=== PATIENT | female | born 1940 | race Caucasian/White ===

== ENCOUNTER 2019-02-04 10:25 | Inpatient (IN) | payer MEDICARE, SELFPAY ==
[2019-02-04] VITALS (14 sets, daily range): BP systolic 141–184; BP diastolic 59–89; PULSE 90–116; RESP 18–22; TEMP 36.6–37.2; O2SAT 96–99; BMI 20.1; BMI 20.7
--- NOTE | 2019-02-04 10:34 | EKG12_ITS ---
Test Reason : SOB Blood Pressure : / mmHG Vent. Rate : 103 BPM Atrial Rate : 103 BPM P-R Int : 152 ms QRS Dur : 084 ms QT Int : 332 ms P-R-T Axes : 085 070 075 degrees QTc Int : 434 ms Sinus tachycardia Otherwise normal ECG Confirmed by LISA THOMPSON ([id number]), image editor TOMMIE POSADAS ([id number]) on 02/07/2019 1:49:47 PM Referred By: Denilson Schultz Confirmed By:LISA THOMPSON
--- NOTE | 2019-02-04 10:45 | RAD_ITS ---
STUDY: X-RAY CHEST REASON FOR EXAM: Female, 78 years old. TECHNIQUE: 1 view COMPARISON: August 14, 2014. FINDINGS: There is hyperinflation of the right lung which is clear. There is loss of volume of the left lung with elevation of the left hemidiaphragm. There is calcification of the aortic knob. The cardiac silhouette is not enlarged. There is oval opacity in the right hilum measures 3.3 x 2 cm this is a new finding since the previous examination for which CT scan is recommended. RAD/Chest 1 View (Portable) IMPRESSION: Loss of volume of the left lung with the 3.3 x 2 cm oval opacity in the left hilum that needs further assessment by CT scan. Electronically Signed: Delia Sandoval, at 11:06 EDT Tel , Service support ,
--- NOTE | 2019-02-04 10:49 | CT_ITS ---
STUDY: CTA CHEST REASON FOR EXAM: Female, 78 years old. RADIATION DOSAGE (If Supplied By Facility): CTDIvol = ( 4.08 ) mGy, DLP = ( 127.53 ) mGycm TECHNIQUE: The examination was performed with the intravenous administration of 75CC IV Isovue 370. Post-processing of the angiographic images was performed, with multiplanar reformation and 3D reconstruction. Individualized dose optimization techniques were used for this CT. COMPARISON: None. FINDINGS: There is atelectasis of the left upper lobe which is pulling the left hilum and left pulmonary artery causing oval opacity seen on x-ray. No obvious air bronchogram noted within the collapsed left upper lobe. The rest of the left lung is clear. The pulmonary trunk and both the pulmonary arteries including segmental and subsegmental branches are within normal limits no evidence of filling defect to suggest PE. The right lung is hyperinflated and clear. No retrosternal, paratracheal or hilar adenopathy seen CT/CTA Chest W/WO Contrast IMPRESSION: Collapse of the left upper lobe which pulling up he left hilum and left pulmonary artery that is causing the opacity seen on x-ray. No hilar mass identified. No PE seen. Electronically Signed: Delia Sandoval, at 12:23 EDT Tel , Service support ,
--- NOTE | 2019-02-04 10:50 | ED.DCSUM_ITS ---
History of Present Illness Chief Complaint: Shortness of Breath Informant: Patient, Family Onset: Days Current Severity: Mild Narrative: Patient has a history of severe COPD she is on chronic home O2 2 to 4 L family patient reports that for about a week or so she has had pain to her left mid posterior back worse when she takes a deep breath, frequent urination, and what seems like more shortness of breath than her baseline however she is chronically short of breath she uses a O2 all the time. She was seen in [facility] ED her work-up was unremarkable there was a concern she may have pneumonia she was started on azithromycin Z-Jerome which she completed however the pain has persisted despite her taking all the antibiotics and using her chronic oral opioid medications which she uses for chronic whole body pain and she is been on for years, she indicates she is having frequent urination and some dysuria she has a history of UTIs no history of kidney stones, no documented fever no abdominal pain per the family she lives alone at home and does well with all of her daily activities and she is been doing well with her daily activities with this condition Past Medical History - Allergies and Home Meds Allergies/Adverse Reactions: Allergies cephalexin monohydrate [From Keflex] Allergy (Verified 08/14/14 12:48) Hives Primary Care Physician: Ari Guerrero MD [Primary Care Provider] - Past Medical History: - - COPD see above Smoking Status: Former smoker Review of Systems General: Denies: Chills, Fever, Sweats Eyes: Denies: Visual changes - bilaterally, Diplopia ENT: Denies: Rhinorrhea, Sore throat Cardiovascular: Denies: Chest pain, Palpitations Respiratory: Reports: Dyspnea, Dyspnea on exertion, - - She has chronic s hortness of breath chronic dyspnea on exertion none of that is new or different she is resting company the bed no distress speaking full sentences. Denies: Cough Gastrointestinal: Denies: Abdominal pain, Nausea, Vomiting, Diarrhea, Melena, Hematochezia Genitourinary: Denies: Dysuria, Hematuria, Frequency Musculoskeletal: Reports: - - She has pain to the posterior chest just beneath the scapula there is no crepitance bruising signs of trauma or skin rash. Denies: Back pain, Extremity Pain Skin: Denies: Rash, Wounds Neurological: Denies: Headache, Weakness, Numbness Physical Exam Vital Signs/Narrative: Vital Signs Temp Pulse Resp BP Pulse Ox 02/04/19 10:45 106 H 22 H 168/80 H 98 02/04/19 10:29 99.0 F 116 H 22 H 184/87 H 96 02/04/19 10:26 99.0 F 116 H 22 H 184/87 H 96 General: Well nourished, Well developed, No Acute Distress Head: Normocephalic, Atraumatic Eyes: Perrl, EOMI ENT: Moist mucous membranes, No rhinorrhea Neck: Supple, Nontender Cardiovascular: Regular rate, Regular rhythm, No murmurs Respiratory: No distress, CTA bilaterally, Chest nontender, Decreased Air Movement, - - She has discomfort as above to the left posterior chest. Negative for: Retractions Abdomen: Soft, Nontender, Nondistended, Normal bowel sounds Back: Nontender, Normal Inspection Extremities: Nontender, No edema Skin: Normal color, No rash Neurological: Alert, Oriented x3, Cranial nerves II-XII grossly intact, Normal Strength, Normal Sensation Psychological: Normal affect, Normal Mood Diagnostic/Tx/Re-eval - Medical Decision Making Given all of the above competence evaluation is obtained screening labs IV fluids CT of the chest cath UA urine culture Patient screening labs are generally unremarkable see those reports,, EKG shows a sinus rhythm rate 100 no acute injury pattern appreciated, per radiology there appears to be a hilar mass that is new suspicious for cancer, given all the above they recommended CT the CT has been ordered Given the persistent nature of her pain the failure of outpatient therapy I have contacted the hospital to see her for further management evaluation of all the above they are aware that the final CT result is not pending and they will check that Disposition admit stable Final impression exacerbation of COPD, Left upper back pain, Hilar mass in lung ED Disposition - Plan for ED Patient: Referrals: Ari Guerrero MD [Primary Care Provider] -
[2019-02-04] MEDS: Ipratropium/Albuterol Sulfate 3 ML AMPUL.NEB INHALATION ×2 (10:59→18:38)
[2019-02-04 11:02] LABS: Absolute Lymphocyte Count 1.07 X10^3/ul (0.83-4.51); Eosinophil# 0.01 X10^3/uL; Eosinophils% 0.2 % (0-5); Hematocrit 39.9 % (37-47); Hemoglobin 12.6 g/dl (12.0-15.0); Lymphocyte # 1.07 X10^3/ul (4.0); Lymphocyte % 23.5 % (19-41); Mean Corp Hgb Conc 31.6 g/gl (32-36); Mean Corpuscular Hgb 29.1 pg (27.0-32.0); Mean Corpuscular Volume 92.1 fL (81-99); Mean Platelet Vol. 9.4 fl (6.2-12.0); Neutrophil # 2.97 X10^3/uL (2.7-7.7); Neutrophil % 65.1 % (47-70); Platelet Count 195 K/mm3 (150-450); RBC Distribution Width CV 12.2 % (11.6-14.6); RBC Distribution Width SD 39.8 fl (35.1-43.9); Red Blood Count 4.33 M/mm3 (4.2-5.4); White Blood Count 4.6 K/mm3 (4.4-11.0)
[2019-02-04 11:03] LABS: POSITIVE COUNT NO; POSITIVE DIFFERENTIAL NO; POSITIVE MORPHOLOGY NO
[2019-02-04 11:18] LABS: Anion Gap 2 (5-15); BUN 13 mg/dL (7-18); BUN/Creat Ratio 18.9 RATIO (10-20); Calcium,Total 9.6 mg/dL (8.5-10.1); Chloride 100 mmol/L (98-107); Creatinine, Serum 0.69 mg/dL (0.55-1.02); EST Glomerular Filtration Rate 88 mL/min (>60); Est Glom Filt Rate - Afr Amer 106 mL/min (>60); Estimated Creatinine Clearance 33.84 ml/min; Glucose 100 mg/dL (74-106); Potassium 3.9 mmol/L (3.5-5.1); Sodium Level 136 mmol/L (136-145)
[2019-02-04 11:55] LABS: BNP,B-Type NATRIURETIC PEPTIDE 9.1 pg/mL (0-100)
--- NOTE | 2019-02-04 12:08 | NURSING ---
DR JANICE BERUMEN
--- NOTE | 2019-02-04 12:13 | NURSING ---
PCU PNEUMONIA, RESP FAILURE JANICE
[2019-02-04 12:25] LABS: Mucous, Urine 0 SEEN /hpf (<or=2+); Red Blood Cells-Urine 0 SEEN /hpf (0-5); White Blood Cells 0 SEEN /hpf (0-5)
[2019-02-04 12:27] LABS: Color, Urine Yellow (Yellow); Glucose, Dipstick Normal (Normal); Ketone-Dipstick Negative (Negative); Leukocyte Esterase-Dipstick Negative /ul (Negative); Nitrite-Dipstick Negative (Negative); Occult Blood-Urine Negative /ul (Negative); Protein-Dipstick Negative (Negative); Specific Gravity, Urine 1.005 (1.002-1.030); Urine Bilirubin Dipstick Negative (Negative); Urine Clarity Clear (Clear); Urine Urobilinogen Normal (Normal)
--- NOTE | 2019-02-04 12:30 | HP.PCM_ITS ---
Problem List (1) COPD (chronic obstructive pulmonary disease) Status: Chronic (2) collapse of left upper lobe Status: Acute (3) Possible pneumonia Status: Acute (4) Chronic heart failure Status: Acute History of Present Illness Date of Admission: 02/04/19 Chief Complaint: Progressive worsening of shortness of breath for about 10 days. The patient is a 78 year old F with history of COPD, chronic hypoxia on 2 to 4 L came to ED for progressive worsening of shortness of breath and left upper posterior back pain. She felt like subjective chills but no obvious fever. She denies cough, hemoptysis or wheezing. She lost about 5 pounds in the last 1 to 2 weeks but denied gradual loss of weight. Quit smoking 10 years ago. History of 11/2 pack years of smoking since age of 14. In ED, she was found hypoxic, 96% on 4 L of oxygen respiratory rate 22, heart rate 116. Temperature 99. Basic labs shows bicarb 34, anion gap 2, BNP 9. No leukocytosis. UA shows no WBC or RBC leukocyte esterase although she complains of dysuria increased frequency for few days [] Past Medical History Past Medical History (Chronic Problems): Chronic Problems COPD (chronic obstructive pulmonary disease) (Chronic) Allergies cephalexin monohydrate [From Keflex] Allergy (Verified 08/14/14 12:48) Hives Home Medications: Ambulatory Orders Medication Instructions Recorded Alprazolam 0.5 mg PO PRN PRN 08/14/14 Carvedilol 3.125 mg PO DAILY 08/14/14 Hydrocodone/Acetaminophen 1 tablet PO PRN PRN 08/14/14 [Hydrocodon-Acetaminophen 5-325] Methimazole 5 mg PO DAILY 08/14/14 predniSONE tablet 10 mg PO DAILY #48 tablet 08/14/14 Smoking Status: Former smoker - Quit 10 years ago - *Family History Paternal History Items: No pertinent history Review of Systems Constitutional: Denies: Chills, Fever, Weight Change HEENT: Denies: Head Aches, Sinus Congestion, Sinus Drainage Cardiovascular: Reports: Chest Pain. Denies: Palpitations Respiratory: Reports: Shortness of breath at rest, Shortness of breath upon exertion. Denies: Cough, Sputum production Gastrointestinal: Denies: Abdominal Pain, Nausea, Vomiting Genitourinary: Reports: Dysuria, Frequency Musculoskeletal: Reports: Joint Pain. Denies: Joint Tenderness Skin: Denies: Rash, Wounds Neurological: Denies: Numbness, Tingling, Focal weakness Psychiatric: Denies: Anxiety, Depression, Homicidal Ideations, Suicidal Ideations Hematologic/ Lymphatic: Denies: Easy Bruising, Easy Bleeding VTE Information - Inpt Only VTE Present on Admission: No VTE Mechan Device Prophylaxis: None VTE Pharm Prophylaxis ordered?: Yes Patient Problems: Active and Suspected Problems collapse of left upper lobe (Acute) Possible pneumonia (Acute) Chronic heart failure (Acute) - Physical Exam General: Alert, Oriented x3, Cooperative HEENT: Atraumatic, PERRLA, EOMI, Normocephalic Oral: No Gingival or Mucosal Lesions/ Ulcerations, - - No inflammatory exudate over soft palate pharyngeal wall Neck: Supple, No JVD, Negative Carotid Bruits Lungs: Diminished - Air entry is diminished in left side., Short of Breath - Shortness of breath, Tachypneic Cardiovascular: Regular rate, Regular Rhythm, Normal S1, Normal S2, No murmurs Abdomen: Bowel Sounds Present, Soft, Non Tender, Non-Distended Extremities: No edema, Capillary Refill Less than 3 Seconds Skin: No rashes, No breakdown Musculoskeletal: No Tenderness to Palpation of Joints or Extremities, Arthritic Changes, Muscle Wasting Lymphatic: No Cervical, Supraclavicular, or Inguinal Adenopathy Neurological: Cranial nerves II-XII grossly intact, Deep Tendon Reflexes 2+/4 and Symmetrical, Neuro grossly intact Psych/Mental Status: Normal Affect, Appropriate Vital Signs Temp Pulse Resp BP Pulse Ox 98.1 F 108 H 18 177/89 H 99 02/04/19 12:25 02/04/19 12:25 02/04/19 12:25 02/04/19 12:25 02/04/19 12:25 Oxygen Flow Rate (L/min) 2 Oxygen Delivery Method Room Air Weight: 103 lb 2.821 oz Body Mass Index (BMI) 20.1 Laboratory Tests Past 24 Hrs 02/04/19 02/04/19 02/04/19 10:48 10:48 10:48 WBC 4.6 RBC 4.33 Hgb 12.6 Hct 39.9 MCV 92.1 MCH 29.1 MCHC 31.6 L RDW 12.2 RDW Differential 39.8 Plt Count 195 MPV 9.4 Immature Gran % (Auto) 0.200 Neut % (Auto) 65.1 Lymph % (Auto) 23.5 [place] % (Auto) 11.0 H Eos % (Auto) 0.2 Baso % (Auto) 0.0 Absolute Neuts (auto) 3.0 Absolute Lymphs (auto) 1.07 Total Counted Not Reportable Sodium 136 Potassium 3.9 Chloride 100 Carbon Dioxide 34.0 H Anion Gap 2 L BUN 13 Creatinine 0.69 Estim Creat Clear Calc 33.84 Est GFR (MDRD) Af Amer 106 Est GFR (MDRD) Non-Af 88 BUN/Creatinine Ratio 18.9 Glucose 100 Calcium 9.6 Troponin I < 0.015 B-Natriuretic Peptide 9.1 Urine Color Urine Clarity Urine pH Ur Specific [place] Urine Protein Urine Glucose (UA) Urine Ketones Urine Occult Blood Urine Nitrite Urine Bilirubin Urine Urobilinogen Ur Leukocyte Esterase Urine RBC Urine WBC Ur Squamous Epith Cells Urine Bacteria Urine Mucus 02/04/19 12:12 WBC RBC Hgb Hct MCV MCH MCHC RDW RDW Differential Plt Count MPV Immature Gran % (Auto) Neut % (Auto) Lymph % (Auto) [place] % (Auto) Eos % (Auto) Baso % (Auto) Absolute Neuts (auto) Absolute Lymphs (auto) Total Counted Sodium Potassium Chloride Carbon Dioxide Anion Gap BUN Creatinine Estim Creat Clear Calc Est GFR (MDRD) Af Amer Est GFR (MDRD) Non-Af BUN/Creatinine Ratio Glucose Calcium Troponin I B-Natriuretic Peptide Urine Color Pending Urine Clarity Pending Urine pH Pending Ur Specific [place] Pending Urine Protein Pending Urine Glucose (UA) Pending Urine Ketones Pending Urine Occult Blood Pending Urine Nitrite Pending Urine Bilirubin Pending Urine Urobilinogen Pending Ur Leukocyte Esterase Pending Urine RBC Pending Urine WBC Pending Ur Squamous Epith Cells Pending Urine Bacteria Pending Urine Mucus Pending Assessment/Plan All Active Problems collapse of left upper lobe (Acute) Possible pneumonia (Acute) Chronic heart failure (Acute) The patient is a 78 year old F with history of COPD, chronic hypoxia on 2 to 4 L came to ED for progressive worsening of shortness of breath and left upper posterior back pain. She felt like subjective chills but no obvious fever. She denies cough, hemoptysis or wheezing. She lost about 5 pounds in the last 1 to 2 weeks but denied gradual loss of weight. Quit smoking 10 years ago. History of 11/2 pack years of smoking since age of 14. In ED, she was found hypoxic, 96% on 4 L of oxygen respiratory rate 22, heart rate 116. Temperature 99. Basic labs shows bicarb 34, anion gap 2, BNP 9. No leukocytosis. UA shows no WBC or RBC leukocyte esterase although she complains of dysuria increased frequency for few days [] 1. Acute on chronic hypoxic respiratory failure, most probably from left upper lobe collapse with severe COPD: [facility] is [facility]. On oxygen therapy. If needed can put on BiPAP. 2. Left upper lobe collapse: CT chest reviewed. Shows left upper lobe collapse with no air bronchograms. No hilar mass or PE seen exact etiology unclear but possible atelectasis, pneumonia, rule out mass. Pulmonology is consulted for further opinion and recommendation. Empirically started on IV Rocephin. Mucinex, chest physiotherapy, bronchodilator, incentive spirometry ordered. 3. Severe COPD/emphysema: Patient does not look like an exacerbation as he does not have wheezing, cough or sputum production. Continue bronchodilator and Mucinex. 4. Chronic heart failure: Patient said she was diagnosed heart failure about 3 years ago in [facility]. Currently she does not have leg swelling or pulmonary edema. BNP is normal. She is not on medications for heart failure. She had heart cath about 3 years ago and was told coronary arteries normal but heart failure. Apparently she might had echo at that time too. We will try to get old records from [facility]. EKG shows sinus tachycardia at a rate 103 bpm. 6. Severe protein calorie malnutrition/cachexia possible secondary to advanced emphysema: Patient is counseled. 7. DVT prophylaxis: Lovenox 40 subcu daily. MOLST/advance directive: Advanced directive discussed with the patient and her daughter. Patient and her daughter wants all the resuscitation measures when advanced directive was discussed. In case of respiratory failure/cardiac arrest, she wants intubation/vent management, CPR, vessel pressure and agreeable with tube feeding. Total time spent in [id number] encounter in discussion of advanced directive 18 minutes. Clinical Impression(s) from Imaging Studies Chest X-Ray 02/04/19 10:45 IMPRESSION: Loss of volume of the left lung with the 3.3 x 2 cm oval opacity in the left hilum that needs further assessment by CT scan. Chest CTA 02/04/19 10:49 IMPRESSION: Collapse of the left upper lobe which pulling up he left hilum and left pulmonary artery that is causing the opacity seen on x-ray. No hilar mass identified. No PE seen. Code Visit Inpatient E&M: 07660 Init Hosp L3 Procedures: 20349 Advncd Care Plan 30 Min
[2019-02-04 12:43] LABS: Bacteria RARE /hpf (None Seen); Squamous Epithelial Cells - UA 0-5 SEEN /hpf (5-10)
[2019-02-04] MEDS: 0.9% Normal Saline 1,000 ML 100 ML IV (14:09)
[2019-02-04] MEDS: levoFLOXacin IV 750 MG/150 ML BAG 100 MG IV (14:12)
[2019-02-04] MEDS: ALPRAZolam 0.5 MG Tablet PO (14:14)
[2019-02-04] MEDS: Acetaminophen 325 MG Tablet 650 MG PO (14:14)
[2019-02-04 14:21] LABS: AST(SGOT) 19 U/L (15-37); Alanine Aminotransfer ALT/SGPT 18 U/L (13-56); Albumin, Serum 3.8 g/dL (3.2-5.0); Alkaline Phosphatase 78 U/L (45-117); Bilirubin, Direct 0.13 mg/dL (0.00-0.30); Globulin 3.9 g/dL (2.2-4.2); Protein, Total 7.7 g/dL (6.4-8.2)
[2019-02-04] MEDS: oxyCODONE 5 MG Tablet PO ×2 (17:22→21:24)
[2019-02-04] MEDS: proMETHazine 25 MG/ML Syringe 12.5 MG IV (18:51)
[2019-02-04] MEDS: 0.9% NaCl Peripheral Flush Adult/Peds IV (18:51)
--- NOTE | 2019-02-04 19:08 | NURSING ---
Boyfriend left few hrs ago. pt is worked up again saying My boyfriend keeps calling me and telling me I cheated on him and I didn't. PT sobbing and hysterical. I just want to go to sleep, just give me something to put me to sleep. At that minute patients cell phone rang and she immediately started screaming again. This nurse left the room.
[2019-02-04] MEDS: LORazepam 1 MG Tablet PO (22:58)
[2019-02-04] MEDS: guaiFENesin 1,200 MG Tablet 1200 MG PO (22:59)
[2019-02-04] MEDS: Mirtazapine 30 MG Tablet PO (23:00)
[2019-02-04] MEDS: Latanoprost 0.005% 1 Bottle 1 DRP RIGHT EYE (23:00)
[2019-02-04] MEDS: Carvedilol 12.5 MG Tablet PO (23:01)
[2019-02-05] VITALS (11 sets, daily range): BP systolic 135–192; BP diastolic 61–84; PULSE 76–102; RESP 18–22; TEMP 36.6–36.8; O2SAT 92–96
[2019-02-05 04:01] LABS: Color, Urine Yellow (Yellow); Glucose, Dipstick Normal (Normal); Ketone-Dipstick Negative (Negative); Leukocyte Esterase-Dipstick Negative /ul (Negative); Nitrite-Dipstick Negative (Negative); Occult Blood-Urine Negative /ul (Negative); Protein-Dipstick Negative (Negative); Urine Bilirubin Dipstick Negative (Negative); Urine Clarity Clear (Clear); Urine Urobilinogen Normal (Normal)
[2019-02-05] MEDS: Albuterol 2.5 MG/3 ML VIAL.NEB. INHALATION (04:58)
[2019-02-05] MEDS: 0.9% NaCl Peripheral Flush Adult/Peds IV ×5 (05:38→23:00)
[2019-02-05] MEDS: Acetaminophen 325 MG Tablet 650 MG PO ×2 (05:38→17:28)
[2019-02-05 06:21] LABS: Absolute Lymphocyte Count 0.86 X10^3/ul (0.83-4.51); Absolute Neutrophil Count 3.2 X10^3/uL (2.0-7.7); Eosinophil# 0.02 X10^3/uL; Eosinophils% 0.4 % (0-5); Hematocrit 34.6 % (37-47); Hemoglobin 10.9 g/dl (12.0-15.0); Lymphocyte # 0.86 X10^3/ul (4.0); Lymphocyte % 18.6 % (19-41); Mean Corp Hgb Conc 31.5 g/gl (32-36); Mean Corpuscular Hgb 29.4 pg (27.0-32.0); Mean Corpuscular Volume 93.3 fL (81-99); Mean Platelet Vol. 8.9 fl (6.2-12.0); Monocyte# 0.55 X10^3/uL; Monocyte% 11.9 % (0-10); Neutrophil # 3.18 X10^3/uL (2.7-7.7); Neutrophil % 68.9 % (47-70); Platelet Count 162 K/mm3 (150-450); RBC Distribution Width CV 12.6 % (11.6-14.6); RBC Distribution Width SD 42.8 fl (35.1-43.9); Red Blood Count 3.71 M/mm3 (4.2-5.4); White Blood Count 4.6 K/mm3 (4.4-11.0)
[2019-02-05 06:28] LABS: POSITIVE COUNT NO; POSITIVE DIFFERENTIAL NO; POSITIVE MORPHOLOGY NO
[2019-02-05 06:50] LABS: Anion Gap 8 (5-15); BUN 16 mg/dL (7-18); BUN/Creat Ratio 27.6 RATIO (10-20); Chloride 105 mmol/L (98-107); Creatinine, Serum 0.58 mg/dL (0.55-1.02); EST Glomerular Filtration Rate 107 mL/min (>60); Est Glom Filt Rate - Afr Amer 129 mL/min (>60); Estimated Creatinine Clearance 33.84 ml/min; Glucose 93 mg/dL (74-106); Potassium 4.5 mmol/L (3.5-5.1); Sodium Level 141 mmol/L (136-145); T4 Free Direct 1.02 ng/dL (0.76-1.46)
[2019-02-05] MEDS: Morphine 2 MG/ML Syringe IV (07:22)
[2019-02-05] MEDS: Ipratropium/Albuterol Sulfate 3 ML AMPUL.NEB INHALATION ×3 (07:38→19:50)
[2019-02-05] MEDS: Budesonide Respules 0.5 MG/2 ML AMPUL.NEB. INHALATION (07:38)
[2019-02-05] MEDS: Ondansetron 4 MG/2 ML Vial IV (09:04)
--- NOTE | 2019-02-05 09:46 | PCM.PN.HOSP ---
Patient Problems: Active and Suspected Problems collapse of left upper lobe (Acute) Possible pneumonia (Acute) Chronic heart failure (Acute) Subjective: Patient was seen and examined. She complains of shortness of breath worse with ambulation. Denied any chest pain no dizziness or palpitation. No acute events overnight. Vitals/I&O's: Vital Signs Temp Pulse Resp BP Pulse Ox 97.9 F 85 18 140/64 H 95 02/05/19 09:07 02/05/19 09:07 02/05/19 09:07 02/05/19 09:07 02/05/19 09:07 Oxygen Flow Rate (L/min) 2 Oxygen Delivery Method Nasal Cannula Weight: 48.9 kg Body Mass Index (BMI) 20.7 Intake and Output for Last 24 Hours 02/03/19 02/04/19 02/05/19 23:59 23:59 23:59 Intake Total 1538 / 1538 308 / 308 Output Total 925 / 925 200 / 200 Balance 613 / 613 108 / 108 General: Alert, Oriented x3, Cooperative, - - On 2 L of oxygen, appears slightly short of breath HEENT: Atraumatic, PERRLA, EOMI, Normocephalic Oral: Moist Mucosa Neck: Supple, No JVD, Negative Carotid Bruits Lungs: Diminished Cardiovascular: Regular rate, Regular Rhythm, Normal S1, Normal S2, No murmurs Abdomen: Bowel Sounds Present, Soft, Non Tender, Non-Distended, No Hepato-splenomegaly Extremities: No edema Skin: No rashes, No breakdown Musculoskeletal: No Tenderness to Palpation of Joints or Extremities Lymphatic: No Cervical, Supraclavicular, or Inguinal Adenopathy Neurological: Cranial nerves II-XII grossly intact, Neuro grossly intact Psych/Mental Status: Normal Affect, Appropriate Microbiology Past 72 Hours 02/04/19 12:12 Urine, Clean Catch Streptococcus pneumoniae Antigen (M - Final 02/04/19 12:12 Urine, Clean Catch Legionella Antigen - Final Laboratory Results 02/04/19 10:48: WBC 4.6, RBC 4.33, Hgb 12.6, Hct 39.9, MCV 92.1, MCH 29.1, MCHC 31.6 L, RDW 12.2, RDW Differential 39.8, Plt Count 195, MPV 9.4, Immature Gran % (Auto) 0.200, Neut % (Auto) 65.1, Lymph % (Auto) 23.5, [place] % (Auto) 11.0 H, Eos % (Auto) 0.2, Baso % (Auto) 0.0, Absolute Neuts (auto) 3.0, Absolute Lymphs (auto) 1.07, Total Counted Not Reportable 02/04/19 10:48: Sodium 136, Potassium 3.9, Chloride 100, Carbon Dioxide 34.0 H, Anion Gap 2 L, BUN 13, Creatinine 0.69, Estim Creat Clear Calc 33.84, Est GFR (MDRD) Af Amer 106, Est GFR (MDRD) Non-Af 88, BUN/Creatinine Ratio 18.9, Glucose 100, Calcium 9.6, Troponin I < 0.015 02/04/19 10:48: B-Natriuretic Peptide 9.1 02/04/19 10:48: Total Bilirubin 0.40, Direct Bilirubin 0.13, AST 19, ALT 18, Alkaline Phosphatase 78, Total Protein 7.7, Albumin 3.8, Globulin 3.9 02/04/19 12:12: Urine Color Yellow, Urine Clarity Clear, Urine pH 7.0, Ur Specific [place] 1.005, Urine Protein Negative, Urine Glucose (UA) Normal, Urine Ketones Negative, Urine Occult Blood Negative, Urine Nitrite Negative, Urine Bilirubin Negative, Urine Urobilinogen Normal, Ur Leukocyte Esterase Negative, Urine RBC 0 SEEN, Urine WBC 0 SEEN, Ur Squamous Epith Cells 0-5 SEEN, Urine Bacteria RARE, Urine Mucus 0 SEEN 02/05/19 03:42: Urine Color Yellow, Urine Clarity Clear, Urine pH 6.0, Ur Specific [place] 1.010, Urine Protein Negative, Urine Glucose (UA) Normal, Urine Ketones Negative, Urine Occult Blood Negative, Urine Nitrite Negative, Urine Bilirubin Negative, Urine Urobilinogen Normal, Ur Leukocyte Esterase Negative 02/05/19 06:00: WBC 4.6, RBC 3.71 L, Hgb 10.9 L, Hct 34.6 L, MCV 93.3, MCH 29.4, MCHC 31.5 L, RDW 12.6, RDW Differential 42.8, Plt Count 162, MPV 8.9, Immature Gran % (Auto) 0.200, Neut % (Auto) 68.9, Lymph % (Auto) 18.6 L, [place] % (Auto) 11.9 H, Eos % (Auto) 0.4, Baso % (Auto) 0.0, Absolute Neuts (auto) 3.2, Absolute Lymphs (auto) 0.86, Total Counted Not Reportable 02/05/19 06:00: Sodium 141, Potassium 4.5, Chloride 105, Carbon Dioxide 28.0, Anion Gap 8, BUN 16, Creatinine 0.58, Estim Creat Clear Calc 33.84, Est GFR (MDRD) Af Amer 129, Est GFR (MDRD) Non-Af 107, BUN/Creatinine Ratio 27.6 H, Glucose 93, Calcium 9.0, TSH 1.60, Free T4 1.02 Current Medications Acetaminophen (Tylenol) 650 mg PO Q4H PRN PRN PRN Reason: Fever/pain Last Admin: 02/05/19 05:38 Dose: 650 mg Documented by: Albuterol Sulfate (Ventolin Aerosols) 2.5 mg INHALATION Q2H PRN PRN PRN Reason: SHORTNESS OF BREATH Last Admin: 02/05/19 04:58 Dose: 2.5 mg Documented by: Albuterol/Ipratropium (Duoneb) 3 ml INHALATION Q6H.RT [facility] Last Admin: 02/05/19 07:38 Dose: 3 ml Documented by: Bisacodyl (Dulcolax) 10 mg RECTAL DAILY PRN PRN PRN Reason: Constipation Budesonide (Pulmicort Aerosol) 0.5 mg INHALATION BID [facility] Last Admin: 02/05/19 07:38 Dose: 0.5 mg Documented by: Carvedilol (Coreg) 12.5 mg PO BID [facility] Last Admin: 02/04/19 23:01 Dose: 12.5 mg Documented by: Docusate Sodium (Colace) 200 mg PO BID PRN PRN PRN Reason: Constipation Enoxaparin Sodium (Lovenox) 40 mg SC DAILY [facility] Famotidine (Pepcid) 20 mg PO DAILY [facility] Guaifenesin (Mucinex) 1,200 mg PO BID [facility] Last Admin: 02/04/19 22:59 Dose: 1,200 mg Documented by: Levofloxacin (Levaquin Iv) 750 mg in 150 mls @ 100 mls/hr IV Q48 [facility] Last Admin: 02/04/19 14:12 Dose: 100 mls/hr Documented by: Labetalol HCl (Trandate) 10 mg IV Q4H PRN PRN PRN Reason: SBP > 160 Last Admin: 02/05/19 05:39 Dose: 10 mg Documented by: Latanoprost (Xalatan Opthalmic) 1 drop RIGHT EYE QHS [facility] Last Admin: 02/04/19 23:00 Dose: 1 drop Documented by: Lorazepam (Ativan) 1 mg PO TID PRN PRN Reason: ANXIETY Last Admin: 02/04/19 22:58 Dose: 1 mg Documented by: Melatonin (Melatonin) 5 mg PO QHS [facility] Methimazole (Tapazole) 5 mg PO DAILY [facility] Mirtazapine (Remeron) 30 mg PO QHS [facility] Last Admin: 02/04/19 23:00 Dose: 30 mg Documented by: Morphine Sulfate () 2 mg IV Q3H PRN PRN PRN Reason: Severe Pain (pain scale 6-10) Last Admin: 02/05/19 07:22 Dose: 2 mg Documented by: Nutritional Formula (Lactose Free) (Ensure Enlive) 120 ml PO 4X/DAY [facility] Last Admin: 02/04/19 23:11 Dose: 120 ml Documented by: Ondansetron HCl (Zofran) 4 mg IV Q6H PRN PRN PRN Reason: NAUSEA/VOMITING Last Admin: 02/05/19 09:04 Dose: 4 mg Documented by: Oxycodone HCl (Oxyir) 5 mg PO Q4H PRN PRN PRN Reason: Moderate Pain (pain scale 4-5) Last Admin: 02/04/19 21:24 Dose: 5 mg Documented by: Polyethylene Glycol (Miralax) 17 gm PO DAILY [facility] Sodium Chloride () 5 - 15 ml IV UD PRN PRN Reason: SALINE FLUSH Last Admin: 02/05/19 09:03 Dose: 10 ml Documented by: Medical Necessity - Tobacco Use Smoking Status: Former smoker Tobacco Use: Cigarettes Assessment/Plan All Active Problems collapse of left upper lobe (Acute) Possible pneumonia (Acute) Chronic heart failure (Acute) 73-year-old female with past medical history of COPD, chronic respiratory failure on 2 to 4 L of oxygen who comes in with complaints of progressive worsening shortness of breath as well as back pain. Patient was found to have a left upper lobe collapse and was admitted for further management. Pulmonology has been consulted. 1. Acute on chronic hypoxic respiratory failure secondary to left upper lobe collapse/acute COPD exacerbation/pneumonia On breathing treatments, levaquin, IV steroids, pulmonology consulted, continue on incentive spirometer, Acapella 2. Acute severe COPD exacerbation, on breathing treatment, IV steroids, IV antibiotics 3. Chronic CHF, unknown EF, no signs of acute exacerbation 4. Severe protein calorie malnutrition secondary to advanced COPD, rubber roller grinder consulted. 5. DVT PPx- Lovenox SC Code Visit Inpatient E&M: 12593 Subs Hosp L2
[2019-02-05] MEDS: METHIMAZOLE 5 MG TABLET PO (09:58)
[2019-02-05] MEDS: Polyethylene Glycol 3350 17 GM PACKET PO (09:58)
[2019-02-05] MEDS: guaiFENesin 1,200 MG Tablet 1200 MG PO ×2 (09:58→21:57)
[2019-02-05] MEDS: Famotidine 20 MG Tablet PO (09:58)
[2019-02-05] MEDS: Enoxaparin 40 MG/0.4 ML Syringe SC (09:59)
[2019-02-05] MEDS: LORazepam 1 MG Tablet PO ×2 (10:01→17:28)
[2019-02-05] MEDS: Carvedilol 12.5 MG Tablet PO ×2 (10:02→21:57)
--- NOTE | 2019-02-05 10:45 | PCM.CONS.PUL ---
Problem List (1) COPD (chronic obstructive pulmonary disease) Status: Chronic Qualifiers: COPD type: emphysema Emphysema type: centrilobular Qualified Code(s): J43.2 - Centrilobular emphysema (2) collapse of left upper lobe Status: Acute (3) Possible pneumonia Status: Acute (4) Chronic heart failure Status: Acute Reason for Consult Date of Consultation: 02/05/19 Reason for Consultation: Abnormal CT History of Present Illness: The patient is a 78 year old F, with past medical history listed below, who presented to [facility] on 02/04/2019 secondary to pleuritic chest pain. Patient reportedly has a history of COPD, but is not seen by architect in training at baseline. Patient was at [facility] emergency department on and given azithromycin, morphine and sent home. Patient states that she has had a sharp stabbing left-sided chest pain gets worse with deep inhalation since that time. Patient presented secondary to lack of improvement and shortness of breath on exertion. Patient had also noted some increased urination. Patient had reported some nausea, but denied any vomiting. Patient reportedly does live alone at home and typically does her activities of daily living. While in the emergency department, patient was noted to be hypertensive and tachycardic. Patient was saturating well on baseline 2 L nasal cannula. Patient did have a CT scan of the chest showing a left upper lobe collapse without hilar mass. Patient was admitted on IV antibiotics secondary to failure of outpatient therapy. Patient reports mild subjective improvement in overall condition. Patient is still having significant left-sided pain with deep inhalation. Patient does report a history of COPD, but is never had pulmonary function tests are seen a architect in training. Patient does have an extensive smoking history, but quit 10 years ago. Patient does report some subjective fevers, but denies any chills. Patient does report an increased cough recently, which is abnormal for her with some sputum production. In retrospect, patient does report a choking episode approximately 4 months ago, but is very clear that her pleuritic chest pain is less than a week old. Patient does report a decrease in appetite and thinks she may have lost some weight. Patient states that she typically has fluctuations of body weight. Patient has noted some mild increase in lower extremity edema recently. Patient does not routinely check her saturations at home. Patient does state that she would want a work-up if there was some concern for malignancy. However, patient would like to avoid a bronchoscopy if possible. Patient believes she has had chest x-rays in the past, but is unclear if she is had a CAT scan. Review of systems otherwise negative x10 systems. Past Medical History Past Medical History (Chronic Problems): Chronic Problems COPD (chronic obstructive pulmonary disease) (Chronic) Allergies cephalexin monohydrate [From Keflex] Allergy (Verified 02/04/19 14:25) Hives codeine Adverse Reaction (Verified 02/04/19 14:27) Other sulfamethoxazole [From Bactrim] Adverse Reaction (Verified 02/04/19 14:25) Rash trimethoprim [From Bactrim] Adverse Reaction (Verified 02/04/19 14:25) Rash Home Medications: Ambulatory Orders Medication Instructions Recorded Hydrocodone/Acetaminophen 1 tablet PO PRN PRN 08/14/14 [Hydrocodon-Acetaminophen 5-325] Methimazole 5 mg PO DAILY 08/14/14 Albuterol Aerosols [Ventolin 2 puff IH Q4H PRN 02/04/19 Aerosols] Budesonide [Pulmicort] 0.5 mg IH BID 02/04/19 Carvedilol [Coreg] 12.5 mg PO BID 02/04/19 Ipratropium/Albuterol Sulfate 3 ml INHALATION Q4H.RT 02/04/19 [Duoneb] Ipratropium/Albuterol Sulfate IH BID 02/04/19 [Duoneb] Lorazepam [Ativan] 1 mg PO TID PRN 02/04/19 Melatonin 5 mg PO QHS 02/04/19 Mirtazapine [Remeron] 30 mg PO QHS 02/04/19 Travoprost 0.004% [Travatan-Z 1 drp RIGHT EYE QHS 02/04/19 0.004% Eye Drop] Smoking Status: Former smoker Tobacco Use: Cigarettes - *Family History Paternal History Items: No pertinent history Review of Systems Comment: See HPI Patient Problems: Active and Suspected Problems collapse of left upper lobe (Acute) Possible pneumonia (Acute) Chronic heart failure (Acute) Objective: All imaging was personally reviewed. Patient does have left upper lobe collapse and significant emphysematous changes. There does not appear to be any significant mediastinal lymphadenopathy or masses, but patient does have a positive airway sign in the left upper lobe. - Physical Exam General: Alert, Oriented x3, Cooperative, - - Mild conversational dyspnea. Appears older than stated age. HEENT: Atraumatic, PERRLA, EOMI, Normocephalic, - - No scleral icterus or injection noted Oral: Moist Mucosa, No Gingival or Mucosal Lesions/ Ulcerations Neck: Supple, No JVD, No Nodes, Trachea Midline Lungs: No rhonchi, No rales, Diminished - Left apex, Wheezes Cardiovascular: Regular rate, Regular Rhythm, Normal S1, Normal S2, No murmurs, No rub noted, No Gallop Abdomen: Bowel Sounds Present, Soft, Non Tender, Non-Distended Extremities: No cyanosis, Capillary Refill Less than 3 Seconds, Clubbing, Edema - Trace lower extremity Skin: No rashes, No breakdown Musculoskeletal: No Tenderness to Palpation of Joints or Extremities Lymphatic: No Cervical, Supraclavicular, or Inguinal Adenopathy Neurological: Cranial nerves II-XII grossly intact, Neuro grossly intact, Motor Exam 5/5 strength throughout Psych/Mental Status: Alert and oriented to time, place, person, mood and affect Vital Signs Temp Pulse Resp BP Pulse Ox 36.6 C 85 18 140/64 H 95 02/05/19 09:07 02/05/19 09:07 02/05/19 09:07 02/05/19 09:07 02/05/19 09:07 Oxygen Flow Rate (L/min) 2 Oxygen Delivery Method Nasal Cannula Weight: 48.9 kg Body Mass Index (BMI) 20.7 Intake and Output for Last 24 Hours 02/03/19 02/04/19 02/05/19 23:59 23:59 23:59 Intake Total 1538 / 1538 308 / 308 Output Total 925 / 925 350 / 350 Balance 613 / 613 -42 / -42 Microbiology Past 72 Hours 02/04/19 12:12 Streptococcus pneumoniae Antigen (M - Final Urine, Clean Catch 02/04/19 12:12 Legionella Antigen - Final Urine, Clean Catch Laboratory Tests Past 24 Hrs 02/04/19 02/04/19 02/04/19 10:48 10:48 10:48 WBC 4.6 RBC 4.33 Hgb 12.6 Hct 39.9 MCV 92.1 MCH 29.1 MCHC 31.6 L RDW 12.2 RDW Differential 39.8 Plt Count 195 MPV 9.4 Immature Gran % (Auto) 0.200 Neut % (Auto) 65.1 Lymph % (Auto) 23.5 [place] % (Auto) 11.0 H Eos % (Auto) 0.2 Baso % (Auto) 0.0 Absolute Neuts (auto) 3.0 Absolute Lymphs (auto) 1.07 Total Counted Not Reportable Sodium 136 Potassium 3.9 Chloride 100 Carbon Dioxide 34.0 H Anion Gap 2 L BUN 13 Creatinine 0.69 Estim Creat Clear Calc 33.84 Est GFR (MDRD) Af Amer 106 Est GFR (MDRD) Non-Af 88 BUN/Creatinine Ratio 18.9 Glucose 100 Calcium 9.6 Total Bilirubin Direct Bilirubin AST ALT Alkaline Phosphatase Troponin I < 0.015 B-Natriuretic Peptide 9.1 Total Protein Albumin Globulin TSH Free T4 Urine Color Urine Clarity Urine pH Ur Specific Union Urine Protein Urine Glucose (UA) Urine Ketones Urine Occult Blood Urine Nitrite Urine Bilirubin Urine Urobilinogen Ur Leukocyte Esterase Urine RBC Urine WBC Ur Squamous Epith Cells Urine Bacteria Urine Mucus 02/04/19 02/04/19 02/05/19 10:48 12:12 03:42 WBC RBC Hgb Hct MCV MCH MCHC RDW RDW Differential Plt Count MPV Immature Gran % (Auto) Neut % (Auto) Lymph % (Auto) [place] % (Auto) Eos % (Auto) Baso % (Auto) Absolute Neuts (auto) Absolute Lymphs (auto) Total Counted Sodium Potassium Chloride Carbon Dioxide Anion Gap BUN Creatinine Estim Creat Clear Calc Est GFR (MDRD) Af Amer Est GFR (MDRD) Non-Af BUN/Creatinine Ratio Glucose Calcium Total Bilirubin 0.40 Direct Bilirubin 0.13 AST 19 ALT 18 Alkaline Phosphatase 78 Troponin I B-Natriuretic Peptide Total Protein 7.7 Albumin 3.8 Globulin 3.9 TSH Free T4 Urine Color Yellow Yellow Urine Clarity Clear Clear Urine pH 7.0 6.0 Ur Specific [place] 1.005 1.010 Urine Protein Negative Negative Urine Glucose (UA) Normal Normal Urine Ketones Negative Negative Urine Occult Blood Negative Negative Urine Nitrite Negative Negative Urine Bilirubin Negative Negative Urine Urobilinogen Normal Normal Ur Leukocyte Esterase Negative Negative Urine RBC 0 SEEN Urine WBC 0 SEEN Ur Squamous Epith Cells 0-5 SEEN Urine Bacteria RARE Urine Mucus 0 SEEN 02/05/19 02/05/19 06:00 06:00 WBC 4.6 RBC 3.71 L Hgb 10.9 L Hct 34.6 L MCV 93.3 MCH 29.4 MCHC 31.5 L RDW 12.6 RDW Differential 42.8 Plt Count 162 MPV 8.9 Immature Gran % (Auto) 0.200 Neut % (Auto) 68.9 Lymph % (Auto) 18.6 L [place] % (Auto) 11.9 H Eos % (Auto) 0.4 Baso % (Auto) 0.0 Absolute Neuts (auto) 3.2 Absolute Lymphs (auto) 0.86 Total Counted Not Reportable Sodium 141 Potassium 4.5 Chloride 105 Carbon Dioxide 28.0 Anion Gap 8 BUN 16 Creatinine 0.58 Estim Creat Clear Calc 33.84 Est GFR (MDRD) Af Amer 129 Est GFR (MDRD) Non-Af 107 BUN/Creatinine Ratio 27.6 H Glucose 93 Calcium 9.0 Total Bilirubin Direct Bilirubin AST ALT Alkaline Phosphatase Troponin I B-Natriuretic Peptide Total Protein Albumin Globulin TSH 1.60 Free T4 1.02 Urine Color Urine Clarity Urine pH Ur Specific [place] Urine Protein Urine Glucose (UA) Urine Ketones Urine Occult Blood Urine Nitrite Urine Bilirubin Urine Urobilinogen Ur Leukocyte Esterase Urine RBC Urine WBC Ur Squamous Epith Cells Urine Bacteria Urine Mucus Laboratory Results - last 24 hr 02/04/19 02/04/19 02/04/19 10:48 10:48 10:48 WBC 4.6 RBC 4.33 Hgb 12.6 Hct 39.9 MCV 92.1 MCH 29.1 MCHC 31.6 L RDW 12.2 RDW Differential 39.8 Plt Count 195 MPV 9.4 Immature Gran % (Auto) 0.200 Neut % (Auto) 65.1 Lymph % (Auto) 23.5 [place] % (Auto) 11.0 H Eos % (Auto) 0.2 Baso % (Auto) 0.0 Absolute Neuts (auto) 3.0 Absolute Lymphs (auto) 1.07 Total Counted Not Reportable Sodium 136 Potassium 3.9 Chloride 100 Carbon Dioxide 34.0 H Anion Gap 2 L BUN 13 Creatinine 0.69 Estim Creat Clear Calc 33.84 Est GFR (MDRD) Af Amer 106 Est GFR (MDRD) Non-Af 88 BUN/Creatinine Ratio 18.9 Glucose 100 Calcium 9.6 Total Bilirubin Direct Bilirubin AST ALT Alkaline Phosphatase Troponin I < 0.015 B-Natriuretic Peptide 9.1 Total Protein Albumin Globulin TSH Free T4 Urine Color Urine Clarity Urine pH Ur Specific [place] Urine Protein Urine Glucose (UA) Urine Ketones Urine Occult Blood Urine Nitrite Urine Bilirubin Urine Urobilinogen Ur Leukocyte Esterase Urine RBC Urine WBC Ur Squamous Epith Cells Urine Bacteria Urine Mucus 02/04/19 02/04/19 02/05/19 10:48 12:12 03:42 WBC RBC Hgb Hct MCV MCH MCHC RDW RDW Differential Plt Count MPV Immature Gran % (Auto) Neut % (Auto) Lymph % (Auto) [place] % (Auto) Eos % (Auto) Baso % (Auto) Absolute Neuts (auto) Absolute Lymphs (auto) Total Counted Sodium Potassium Chloride Carbon Dioxide Anion Gap BUN Creatinine Estim Creat Clear Calc Est GFR (MDRD) Af Amer Est GFR (MDRD) Non-Af BUN/Creatinine Ratio Glucose Calcium Total Bilirubin 0.40 Direct Bilirubin 0.13 AST 19 ALT 18 Alkaline Phosphatase 78 Troponin I B-Natriuretic Peptide Total Protein 7.7 Albumin 3.8 Globulin 3.9 TSH Free T4 Urine Color Yellow Yellow Urine Clarity Clear Clear Urine pH 7.0 6.0 Ur Specific [place] 1.005 1.010 Urine Protein Negative Negative Urine Glucose (UA) Normal Normal Urine Ketones Negative Negative Urine Occult Blood Negative Negative Urine Nitrite Negative Negative Urine Bilirubin Negative Negative Urine Urobilinogen Normal Normal Ur Leukocyte Esterase Negative Negative Urine RBC 0 SEEN Urine WBC 0 SEEN Ur Squamous Epith Cells 0-5 SEEN Urine Bacteria RARE Urine Mucus 0 SEEN 02/05/19 02/05/19 06:00 06:00 WBC 4.6 RBC 3.71 L Hgb 10.9 L Hct 34.6 L MCV 93.3 MCH 29.4 MCHC 31.5 L RDW 12.6 RDW Differential 42.8 Plt Count 162 MPV 8.9 Immature Gran % (Auto) 0.200 Neut % (Auto) 68.9 Lymph % (Auto) 18.6 L [place] % (Auto) 11.9 H Eos % (Auto) 0.4 Baso % (Auto) 0.0 Absolute Neuts (auto) 3.2 Absolute Lymphs (auto) 0.86 Total Counted Not Reportable Sodium 141 Potassium 4.5 Chloride 105 Carbon Dioxide 28.0 Anion Gap 8 BUN 16 Creatinine 0.58 Estim Creat Clear Calc 33.84 Est GFR (MDRD) Af Amer 129 Est GFR (MDRD) Non-Af 107 BUN/Creatinine Ratio 27.6 H Glucose 93 Calcium 9.0 Total Bilirubin Direct Bilirubin AST ALT Alkaline Phosphatase Troponin I B-Natriuretic Peptide Total Protein Albumin Globulin TSH 1.60 Free T4 1.02 Urine Color Urine Clarity Urine pH Ur Specific [place] Urine Protein Urine Glucose (UA) Urine Ketones Urine Occult Blood Urine Nitrite Urine Bilirubin Urine Urobilinogen Ur Leukocyte Esterase Urine RBC Urine WBC Ur Squamous Epith Cells Urine Bacteria Urine Mucus Assessment/Plan All Active Problems collapse of left upper lobe (Acute) Possible pneumonia (Acute) Chronic heart failure (Acute) RECOMMENDATIONS: 1. Discontinue Pulmicort, add systemic steroids 2. Continue Levaquin therapy to complete 7 days 3. Repeat CAT scan in 4 weeks 4. Possible bronchoscopy as an outpatient 5. Walking oximetry prior to discharge IMPRESSIONS: 1. Acute COPD exacerbation secondary to community-acquired pneumonia Patient had failed therapy with azithromycin. Patient does have significant dense infiltrate noted of the left upper lobe with possible airway sign. Patient may have an element of postobstructive pneumonia with pleuritic chest pain versus community-acquired pneumonia. Patient will be treated with antibiotics. Will transition patient to systemic steroid therapy as Pulmicort is likely not sufficient to open airway. Aggressive pulmonary toileting. If symptoms were to persist more than 4 to 6 weeks, evaluation with bronchoscopy would be indicated. This can be done as an outpatient. Patient should also have a walking oximetry prior to discharge. A complete PFT for quantification and clarification of lung function would also be appropriate. 2. Unclear congestive heart failure Patient reportedly was told that she had congestive heart failure 3 years ago at [facility] in [place]. Patient does have some trace lower extremity edema, but does not appear to be on congestive heart failure medications as an outpatient. Unclear if this is secondary to history versus noncompliance. Patient reportedly recently had a heart cath. Outpatient echocardiogram can be obtained. 3. Severe protein calorie malnutrition/recurrent ER visits/poor historian Complicates care, management, recovery and prognosis. Patient does state that she would be a full code, at least until she was aware if this is malignancy and its prognosis. Defer supplementation to dietitian. Code Visit Inpatient E&M: 63732 Init Hosp L3
--- NOTE | 2019-02-05 11:10 | CASEMGMT ---
MELVIN ZULETA Face to Face with patient for initial transition planning/care coordination assessment. MELVIN ZULETA introduced self and role at [facility]. Patient lying in bed, alert and oriented. Patient willing to participate in assessment and is able to answer all questions appropriately. Care providers, pharmacy, and demographics verified. Patient wishes to discharge home with resumption of HHC with [facility]. Patient states she has no further needs or concerns at this time. CM to follow for discharge planning needs that may arise. PCP: Cesar Specialists: None Preferred Pharmacy: [facility] Insurance: [employer] [facility] PPO Prescription Benefit: yes Living Will/HPOA: none LNOK: Daughter Living Arrangements: Patient lives alone in a 2 story home with bed and bath on first floor. Patient has ramp to enter the home. Transportation: daughter DME/HHC: Patient states she has a walk in shower with built in bench, rollator, nebulizer, oxygen with portable concentrator through [employer]. Patient has HHC through [facility] for SN and PT. Patient has MOW Disposition Plan: Patient to return home with HHC, family support, and follow-up plans in place. Lidia TAVARES, RN, CM
--- NOTE | 2019-02-05 15:26 | CHAPLAIN ---
Type of Pastoral Visit _x__ Initial Visit ___ Follow-up Visit ___ On-call Visit ___ General Patient Visit ___ Spiritual Assessment ___ Family Conference ___ Bereavement ___ Rapid Response ___ Code Blue ___ Other (describe below) Pastoral Care Referral From _x__ Patient ___ Family ___ Nurse ___ Physician ___ Environmental Protection Specialist ___ Field Sales Associate ___ Other (describe below) Sacrament/Intervention _x__ Active listening ___ Anointing ___ Sabianist ___ Bereavement ___ Communion ___ Yessi exploration ___ ___ Life review _x__ Prayer ___ Reconciliation ___ Sacrament of Sick _x__ Supportive presence ___ Wedding ___ Other (describe below) Pastoral Comments
[2019-02-05] MEDS: oxyCODONE 5 MG Tablet PO (17:28)
[2019-02-05] MEDS: MELATONIN 10 MG TABLET 5 MG PO (21:56)
[2019-02-05] MEDS: Mirtazapine 30 MG Tablet PO (21:57)
[2019-02-05] MEDS: Latanoprost 0.005% 1 Bottle 1 DRP RIGHT EYE (21:57)
[2019-02-06] VITALS (9 sets, daily range): BP systolic 136–164; BP diastolic 58–73; PULSE 69–97; RESP 16–22; TEMP 36.4–37; O2SAT 91–98
[2019-02-06] MEDS: Ipratropium/Albuterol Sulfate 3 ML AMPUL.NEB INHALATION ×4 (00:12→18:48)
--- NOTE | 2019-02-06 01:04 | PHA.PHARE_ITS ---
Consult Pharmacy has been consulted to manage selected antiobiotic: Vancomycin Type of Consult: New start Suspected Infection: Pneumonia Labs: Sodium 141 mmol/L (136-145) 02/05/19 06:00 Potassium 4.5 mmol/L (3.5-5.1) 02/05/19 06:00 Chloride 105 mmol/L (98-107) 02/05/19 06:00 Carbon Dioxide 28.0 mmol/L (21.0-32.0) 02/05/19 06:00 8 (5-15) 02/05/19 06:00 BUN 16 mg/dL (7-18) 02/05/19 06:00 0.58 mg/dL (0.55-1.02) 02/05/19 06:00 Est GFR (MDRD) Af Amer 129 mL/min (>60) 02/05/19 06:00 Est GFR (MDRD) Non-Af 107 mL/min (>60) 02/05/19 06:00 27.6 RATIO (10-20) H 02/05/19 06:00 Glucose 93 mg/dL (74-106) 02/05/19 06:00 Microbiology: Microbiology 02/04/19 10:48 Blood Culture (Wb) - Anticubital Left Blood Culture - Preliminary 02/04/19 12:12 Urine, Clean Catch Urine Culture - Final Mixed Gram Positive Organisms 02/04/19 12:12 Urine, Clean Catch Streptococcus pneumoniae Antigen (M - Sameera l 02/04/19 12:12 Urine, Clean Catch Legionella Antigen - Final Weight used for dosin.9 kg Estimated Creatinine Clearance: 61.6 Goal Trough: 15-20 mcg/mL Pharmacy Plan for Drug Dosing: Pharmacy Service will continue to monitor and adjust dosing as required. Medications Vancomycin HCl () 500 mg in 100 mls @ 100 mls/hr IV Q12H HALEY Discontinued Medications Vancomycin HCl 1,250 mg/ (Sodium Chloride) 275 mls @ 167 mls/hr IV X1 ONE Stop: 02/05/19 23:38 Last Admin: 02/05/19 22:58 Dose: 167 mls/hr Documented by: Follow-Up Labs: Trough Vancomycin Labs to be done on [date and time ordered]: 02/07 @ 1030
[2019-02-06] MEDS: Ondansetron 4 MG/2 ML Vial IV ×2 (03:03→10:31)
[2019-02-06] MEDS: oxyCODONE 5 MG Tablet PO ×2 (03:35→16:59)
[2019-02-06] MEDS: LORazepam 1 MG Tablet PO ×2 (03:36→11:30)
[2019-02-06] MEDS: Acetaminophen 325 MG Tablet 650 MG PO ×2 (03:36→09:34)
[2019-02-06] MEDS: 0.9% NaCl Peripheral Flush Adult/Peds IV ×3 (06:10→10:31)
--- NOTE | 2019-02-06 06:45 | PN_ITS ---
Patient Problems: Active and Suspected Problems collapse of left upper lobe (Acute) Possible pneumonia (Acute) Chronic heart failure (Acute) Subjective: Patient did okay overnight. Patient reports good response to vest therapy, reporting productive cough following its use. Patient unclear if her shortness of breath is significantly improved compared to previous. Patient did have a headache this morning and states that this has persisted. No fevers have been noted overnight. - Physical Exam General: Alert, Oriented x3, Cooperative, No apparent distress, - - No conversational dyspnea noted. HEENT: Atraumatic, PERRLA, EOMI, Normocephalic, - - No scleral icterus or injection noted. Oral: Moist Mucosa, No Gingival or Mucosal Lesions/ Ulcerations Neck: Supple, No JVD, No Nodes, Trachea Midline Lungs: No rhonchi, No rales, Wheezes - Left greater than right, - - Symmetric expansion Cardiovascular: Regular rate, Regular Rhythm, Normal S1, Normal S2, No murmurs, No rub noted, No Gallop Abdomen: Bowel Sounds Present, Soft, Non Tender, Non-Distended Extremities: No cyanosis, No edema, Capillary Refill Less than 3 Seconds, Clubbing Skin: No rashes, No breakdown Musculoskeletal: No Tenderness to Palpation of Joints or Extremities Lymphatic: No Cervical, Supraclavicular, or Inguinal Adenopathy Neurological: Cranial nerves II-XII grossly intact, Neuro grossly intact, Motor Exam 5/5 strength throughout Psych/Mental Status: Alert and oriented to time, place, person, mood and affect Vital Signs Temp Pulse Resp BP Pulse Ox 36.4 C L 90 18 141/69 H 94 02/06/19 03:06 02/06/19 03:06 02/06/19 03:06 02/06/19 03:06 02/06/19 03:06 Oxygen Flow Rate (L/min) 2 Oxygen Delivery Method Nasal Cannula Weight: 48.9 kg Body Mass Index (BMI) 20.7 Intake and Output for Last 24 Hours 02/04/19 02/05/19 02/06/19 23:59 23:59 23:59 Intake Total 1538 / 1538 308 / 758 550 / 550 Output Total 925 / 925 350 / 530 530 / 530 Balance 613 / 613 -42 / 228 Microbiology Past 72 Hours 02/04/19 10:48 Blood Culture - Preliminary Blood Culture (Wb) - Anticubital Left 02/04/19 12:12 Urine Culture - Final Urine, Clean Catch Mixed Gram Positive Organisms 02/04/19 12:12 Streptococcus pneumoniae Antigen (M - Final Urine, Clean Catch 02/04/19 12:12 Legionella Antigen - Final Urine, Clean Catch Laboratory Tests Past 24 Hrs 02/05/19 06:00 Sodium 141 Potassium 4.5 Chloride 105 Carbon Dioxide 28.0 Anion Gap 8 BUN 16 Creatinine 0.58 Estim Creat Clear Calc 33.84 Est GFR (MDRD) Af Amer 129 Est GFR (MDRD) Non-Af 107 BUN/Creatinine Ratio 27.6 H Glucose 93 Calcium 9.0 TSH 1.60 Free T4 1.02 Medical Necessity - Tobacco Use Smoking Status: Former smoker Tobacco Use: Cigarettes Assessment/Plan All Active Problems collapse of left upper lobe (Acute) Possible pneumonia (Acute) Chronic heart failure (Acute) RECOMMENDATIONS: 1. Transition to prednisone therapy and wean over 12 to 14 days 2. Continue Levaquin therapy to complete [address] scan in 4 weeks as an outpatient 4. Possible bronchoscopy as an outpatient 5. Walking oximetry prior to discharge IMPRESSIONS: 1. Acute COPD exacerbation secondary to community-acquired pneumonia Patient appears to be responding to therapy appropriately. Patient has responded well to vest therapy for aggressive pulmonary toileting. Patient does have vancomycin given gram-positive's noted in the blood. If this is consistent with skin organisms, vancomycin can likely be discontinued. Patient should complete 7 days of Levaquin. Repeat imaging with CAT scan in 4 weeks to evaluate airway would be appropriate. Cannot exclude the need for bronchoscopy as an outpatient. 2. Unclear congestive heart failure Patient reportedly was told that she had congestive heart failure 3 years ago at [facility] in [place]. Patient does have some trace lower extremity edema, but does not appear to be on congestive heart failure medications as an outpatient. Unclear if this is secondary to history versus noncompliance. Patient reportedly recently had a heart cath. Outpatient echocardiogram can be obtained. Very low clinical suspicion for congestive heart failure as an etiology of this admission, so would not obtain echocardiogram as an inpatient. 3. Severe protein calorie malnutrition/recurrent ER visits/poor historian Complicates care, management, recovery and prognosis. Patient does state that she would be a full code, at least until she was aware if this is malignancy and its prognosis. Defer supplementation to dietitian. Code Visit Inpatient E&M: 86334 Subs Hosp L2
[2019-02-06] MEDS: Polyethylene Glycol 3350 17 GM PACKET PO (09:21)
[2019-02-06] MEDS: guaiFENesin 1,200 MG Tablet 1200 MG PO ×2 (09:21→21:54)
[2019-02-06] MEDS: levoFLOXacin IV 750 MG/150 ML BAG 100 MG IV (09:21)
[2019-02-06] MEDS: METHIMAZOLE 5 MG TABLET PO (09:21)
[2019-02-06] MEDS: Carvedilol 12.5 MG Tablet PO ×2 (09:21→21:54)
[2019-02-06] MEDS: Famotidine 20 MG Tablet PO (09:22)
[2019-02-06] MEDS: Enoxaparin 40 MG/0.4 ML Syringe SC (09:22)
--- NOTE | 2019-02-06 10:05 | DCINST_ITS ---
- Discharge Diagnoses Current Active Problems: Current Active and Chronic Problems COPD (chronic obstructive pulmonary disease) (Chronic) collapse of left upper lobe (Acute) Possible pneumonia (Acute) Chronic heart failure (Acute) Reason(s) for Visit for Discharge Instructions: Shortness of breath You will use the following diet at home:: Regular Your food should be the consistency of: Regular Your liquids should be the consistency of: Regular/Thin Discharge Activity: Return to Normal Activity Additional Instructions: Continue to use your oxygen all the time. Continue to use your incentive spirometer. You are being discharged with antibiotics and prednisone taper. You should follow-up with your primary care doctor and lung doctor. Allergies/Adverse Reactions: Allergies cephalexin monohydrate [From Keflex] Allergy (Verified 02/04/19 14:25) Hives codeine Adverse Reaction (Verified 02/04/19 14:27) Other sulfamethoxazole [From Bactrim] Adverse Reaction (Verified 02/04/19 14:25) Rash trimethoprim [From Bactrim] Adverse Reaction (Verified 02/04/19 14:25) Rash Medications to take at Discharge Hydrocodone/Acetaminophen [Hydrocodon-Acetaminophen 5-325] 1 tablet PO PRN PRN 08/14/14 Methimazole 5 mg PO DAILY 08/14/14 Albuterol Aerosols [Ventolin Aerosols] 2 puff IH Q4H PRN 02/04/19 Budesonide [Pulmicort] 0.5 mg IH BID 02/04/19 Carvedilol [Coreg] 12.5 mg PO BID 02/04/19 Ipratropium/Albuterol Sulfate [Duoneb] 3 ml INHALATION Q4H.RT 02/04/19 Ipratropium/Albuterol Sulfate [Duoneb] IH BID 02/04/19 Lorazepam [Ativan] 1 mg PO TID PRN 02/04/19 Melatonin 5 mg PO QHS 02/04/19 Mirtazapine [Remeron] 30 mg PO QHS 02/04/19 Travoprost 0.004% [Travatan-Z 0.004% Eye Drop] 1 drp RIGHT EYE QHS 02/04/19 Albuterol Aerosols [Ventolin Aerosols] 2.5 mg INHALATION Q2H PRN PRN #100 vial.neb. 02/06/19 Ensure Enlive 120 ml PO 4X/DAY #120 liquid 02/06/19 Famotidine [Pepcid] 20 mg PO BID #14 tab 02/06/19 Guaifenesin [Mucinex] 1,200 mg PO BID #20 tab 02/06/19 Levofloxacin [Levaquin] 750 mg PO DAILY #4 tab 02/06/19 Prednisone 10 mg PO UD #30 tab 02/06/19 The following prescriptions were given: Ensure Enlive 120 ml PO 4X/DAY #120 liquid Levofloxacin [Levaquin] 750 mg PO DAILY #4 tab Guaifenesin [Mucinex] 1,200 mg PO BID #20 tab Prednisone 10 mg PO UD #30 tab Prescription Printed Albuterol Aerosols [Ventolin Aerosols] 2.5 mg INHALATION Q2H PRN PRN #100 vial.neb. PRN Reason: SHORTNESS OF BREATH Primary Care Physician: Ari Guerrero MD [Primary Care Provider] - Please follow up with your Primary Care Physician in: within 1-2 weeks Test Results: Test results from this visit will be discussed in further detail at your follow- up appointment, if applicable. Please Follow Up With: Jae Hui MD When: within 2 weeks Proposed Discharge Date: 02/06/19
--- NOTE | 2019-02-06 10:46 | PCM.DC.SUM ---
Discharge Date and Diagnosis - Problem List Patient Problems: Active and Suspected Problems collapse of left upper lobe (Acute) Possible pneumonia (Acute) Chronic heart failure (Acute) Date of Admission: 02/04/19 Date of Discharge: 02/07/19 - Primary Discharge Diagnosis Active and Suspected Problems Acute on chronic hypoxic respiratory failure Acute COPD exacerbation Community-acquired pneumonia Left upper lobe collapse Protein energy calorie malnutrition - Secondary Discharge Diagnosis Chronic Problems COPD (chronic obstructive pulmonary disease) (Chronic) Hospital Course and Treatment Imaging Results: Clinical Impression(s) from Imaging Studies Chest X-Ray 02/04/19 10:45 IMPRESSION: Loss of volume of the left lung with the 3.3 x 2 cm oval opacity in the left hilum that needs further assessment by CT scan. Electronically Signed: Delia Sandoval, at 11:06 EDT Tel , Service support , ADDENDUM: 02/04/19 1253 Chest CTA 02/04/19 10:49 IMPRESSION: Collapse of the left upper lobe which pulling up he left hilum and left pulmonary artery that is causing the opacity seen on x-ray. No hilar mass identified. No PE seen. Electronically Signed: Delia Sandoval, at 12:23 EDT Tel , Service support , ADDENDUM: 02/04/19 1251 KUB X-Ray 02/06/19 13:40 IMPRESSION: Normal x-ray examination of the abdomen and pelvis. Electronically Signed: Delia Sandoval, at 14:24 EDT Tel , Service support , Safety Belt Installer Operations: None Procedures: None Summary of Care Provided: 73-year-old female with past medical history of COPD, chronic respiratory failure on 2 to 4 L of oxygen who comes in with complaints of progressive worsening shortness of breath as well as back pain. Patient was found to have a left upper lobe collapse and was admitted for further management. Pulmonology was been consulted. Patient was managed on the floor with IV fluids, oxygen, IV antibiotics, IV steroids, incentive spirometer, Acapella. Shee improved back to her baseline. She was discharged to complete 7 days of Levaquin. The plan from the visual c developer is to repeat imaging with CAT scan in 4 weeks to evaluate her airways. There is a possibility of bronchoscopy in the outpatient. Patient was also managed on nutritional supplements. Patient was going to be discharged on 02/06/19 but she expressed anxiety at going home. She lives alone. She has 1 daughter alive. Discussed with her daughter on phone about the possibility of patient being discharged to spend a few days with her. Daughter was not receptive to the idea as she works all day. She inquired about possible long-term placement for rehab. Patient was seen by PT and OT who did not feel the patient qualifies to go for subacute rehab. Patient has home health care with [facility]. She was discharged to follow-up with her home health team and to follow-up with her visual c developer. Patient Problems: Active and Suspected Problems collapse of left upper lobe (Acute) Possible pneumonia (Acute) Chronic heart failure (Acute) Subjective: On the day of discharge, patient was seen and examined. Her previous bloated feelings were improved. She had a bowel movement on the day of discharge. Was able to eat. Denied any fever or chills. Objective: Physical exam: General: Alert, Oriented x3, Cooperative, - - On 2 L of oxygen HEENT: Atraumatic, PERRLA, EOMI, Normocephalic Oral: Moist Mucosa Neck: Supple, No JVD, Negative Carotid Bruits Lungs: Diminished Cardiovascular: Regular rate, Regular Rhythm, Normal S1, Normal S2, No murmurs Abdomen: Bowel Sounds Present, Soft, Non Tender, Non-Distended, No Hepato-splenomegaly Extremities: No edema Skin: No rashes, No breakdown Musculoskeletal: No Tenderness to Palpation of Joints or Extremities Lymphatic: No Cervical, Supraclavicular, or Inguinal Adenopathy Neurological: Cranial nerves II-XII grossly intact, Neuro grossly intact Psych/Mental Status: Normal Affect, Appropriate - Physical Exam Vital Signs Temp Pulse Resp BP Pulse Ox 98.4 F 87 22 H 136/58 H 97 02/06/19 09:02 02/06/19 09:02 02/06/19 09:02 02/06/19 09:02 02/06/19 09:02 Oxygen Flow Rate (L/min) 2 Oxygen Delivery Method Nasal Cannula Weight: 48.9 kg Body Mass Index (BMI) 20.7 Intake and Output for Last 24 Hours 02/04/19 02/05/19 02/06/19 23:59 23:59 23:59 Intake Total 1538 / 1538 308 / 758 550 / 550 Output Total 925 / 925 350 / 530 530 / 530 Balance 613 / 613 -42 / 228 Microbiology Past 72 Hours 02/04/19 10:48 Bacteria Detection (PCR) - Final Blood Culture (Wb) - Anticubital Left Blood Culture - Preliminary 02/04/19 12:12 Urine Culture - Final Urine, Clean Catch Mixed Gram Positive Organisms 02/04/19 12:12 Streptococcus pneumoniae Antigen (M - Final Urine, Clean Catch 02/04/19 12:12 Legionella Antigen - Final Urine, Clean Catch Discharge Diet: No Restrictions Discharge Activity: Return to Normal Activity Home Medications: Medications to take at Discharge Hydrocodone/Acetaminophen [Hydrocodon-Acetaminophen 5-325] 1 tablet PO PRN PRN 08/14/14 Methimazole 5 mg PO DAILY 08/14/14 Albuterol Aerosols [Ventolin Aerosols] 2 puff IH Q4H PRN 02/04/19 Budesonide [Pulmicort] 0.5 mg IH BID 02/04/19 Carvedilol [Coreg] 12.5 mg PO BID 02/04/19 Ipratropium/Albuterol Sulfate [Duoneb] 3 ml INHALATION Q4H.RT 02/04/19 Ipratropium/Albuterol Sulfate [Duoneb] IH BID 02/04/19 Lorazepam [Ativan] 1 mg PO TID PRN 02/04/19 Melatonin 5 mg PO QHS 02/04/19 Mirtazapine [Remeron] 30 mg PO QHS 02/04/19 Travoprost 0.004% [Travatan-Z 0.004% Eye Drop] 1 drp RIGHT EYE QHS 02/04/19 Albuterol Aerosols [Ventolin Aerosols] 2.5 mg INHALATION Q2H PRN PRN #100 vial.neb. 02/06/19 Ensure Enlive 120 ml PO 4X/DAY #120 liquid 02/06/19 Famotidine [Pepcid] 20 mg PO BID #14 tab 02/06/19 Guaifenesin [Mucinex] 1,200 mg PO BID #20 tab 02/06/19 Prednisone 10 mg PO UD #30 tab 02/06/19 Levofloxacin [Levaquin] 750 mg PO QODAY #3 tab 02/07/19 Following Prescrptions Were Given to Patient: Ensure Enlive 120 ml PO 4X/DAY #120 liquid Transmission Status: Received by [facility] Levofloxacin [Levaquin] 750 mg PO QODAY #3 tab Transmission Status: Received by [facility] Guaifenesin [Mucinex] 1,200 mg PO BID #20 tab Transmission Status: Received by [facility] Famotidine [Pepcid] 20 mg PO BID #14 tab Transmission Status: Received by [facility] Prednisone 10 mg PO UD #30 tab Prescription Printed Albuterol Aerosols [Ventolin Aerosols] 2.5 mg INHALATION Q2H PRN PRN #100 vial.neb. PRN Reason: SHORTNESS OF BREATH Transmission Status: Received by [facility] Primary Care Physician: Ari Guerrero MD [Primary Care Provider] - Please follow up with your Primary Care Physician in: within 1-2 weeks Please Follow Up With: Jae Hui MD When: within 2 weeks Disposition: Home with Home Health Minutes spent on discharge:: 50 Patient Condition:: Stable Medical Necessity - Tobacco Use Smoking Status: Former smoker Tobacco Use: Cigarettes Meaningful Use Info Meaningful Use Diagnoses (Choose all that apply): None applicable Code Visit Inpatient E&M: 20656 Disch Hosp
[2019-02-06] MEDS: Vancomycin IV 500 MG/100 ML BAG 100 MG IV ×2 (11:37→23:43)
[2019-02-06] MEDS: predniSONE 20 MG Tablet 40 MG PO (12:56)
[2019-02-06] MEDS: Morphine 2 MG/ML Syringe IV (12:56)
--- NOTE | 2019-02-06 13:40 | RAD_ITS ---
STUDY: X-RAY - ABDOMEN/PELVIS REASON FOR EXAM: Female, 78 years old. TECHNIQUE: COMPARISON: None. FINDINGS: Normal visualized lung bases. There is an unremarkable bowel gas pattern. There is no demonstrated free abdominal air. The visualized liver, spleen and kidneys are grossly normal in size and morphology. Normal soft tissue structures. There is scoliosis of the lumbar spine convexity to the left side with hypertrophic changes. No abnormal calcifications seen. Jugular this is no RAD/Abdomen Single View (Portable) IMPRESSION: Normal x-ray examination of the abdomen and pelvis. Electronically Signed: Delia Sandoval, at 14:24 EDT Tel , Service support ,
[2019-02-06] MEDS: Mag Hydrox/Al Hydrox/Simeth 30 ML UDC PO (14:59)
[2019-02-06] MEDS: Docusate Sodium 100 MG Capsule 200 MG PO (16:54)
--- NOTE | 2019-02-06 17:06 | PN_ITS ---
Patient Problems: Active and Suspected Problems collapse of left upper lobe (Acute) Possible pneumonia (Acute) Chronic heart failure (Acute) Subjective: Patient was seen and examined. She was going to be discharged when she complains of abdominal distention. She had moved her bowels today. KUB ordered was unremarkable. When pressed, patient admits to feeling very anxious, since she lived alone and does not want to be discharged. Discussed with her daughter, was willing to have him be evaluated for possible discharge to intermediate facility prior to being discharged home. Objective: Physical exam: General: Alert, Oriented x3, Cooperative, - - On 2 L of oxygen HEENT: Atraumatic, PERRLA, EOMI, Normocephalic Oral: Moist Mucosa Neck: Supple, No JVD, Negative Carotid Bruits Lungs: Diminished Cardiovascular: Regular rate, Regular Rhythm, Normal S1, Normal S2, No murmurs Abdomen: Bowel Sounds Present, Soft, Non Tender, Non-Distended, No Hepato- splenomegaly Extremities: No edema Skin: No rashes, No breakdown Musculoskeletal: No Tenderness to Palpation of Joints or Extremities Lymphatic: No Cervical, Supraclavicular, or Inguinal Adenopathy Neurological: Cranial nerves II-XII grossly intact, Neuro grossly intact Psych/Mental Status: Normal Affect, Appropriate Vitals/I&O's: Vital Signs Temp Pulse Resp BP Pulse Ox 98.3 F 80 16 155/69 H 96 02/06/19 14:18 02/06/19 14:18 02/06/19 14:18 02/06/19 14:18 02/06/19 14:18 Oxygen Flow Rate (L/min) 2 Oxygen Delivery Method Nasal Cannula Weight: 48.9 kg Body Mass Index (BMI) 20.7 Intake and Output for Last 24 Hours 02/04/19 02/05/19 02/06/19 23:59 23:59 23:59 Intake Total 1538 / 1538 308 / 758 550 / 550 Output Total 925 / 925 350 / 530 530 / 530 Balance 613 / 613 -42 / 228 Microbiology Past 72 Hours 02/04/19 10:48 Blood Culture (Wb) - Anticubital Left Bacteria Detection (PCR) - Final 02/04/19 10:48 Blood Culture (Wb) - Anticubital Left Blood Culture - Preliminary 02/04/19 12:12 Urine, Clean Catch Urine Culture - Final Mixed Gram Positive Organisms 02/04/19 12:12 Urine, Clean Catch Streptococcus pneumoniae Antigen (M - Final 02/04/19 12:12 Urine, Clean Catch Legionella Antigen - Final Current Medications Acetaminophen (Tylenol) 650 mg PO Q4H PRN PRN PRN Reason: Fever/pain Last Admin: 02/06/19 09:34 Dose: 650 mg Documented by: Al Hydroxide/Mg Hydroxide (Mylanta Ii) 30 ml PO Q4H PRN PRN PRN Reason: DYSPEPSIA Last Admin: 02/06/19 14:59 Dose: 30 ml Documented by: Albuterol Sulfate (Ventolin Aerosols) 2.5 mg INHALATION Q2H PRN PRN PRN Reason: SHORTNESS OF BREATH Last Admin: 02/05/19 04:58 Dose: 2.5 mg Documented by: Albuterol/Ipratropium (Duoneb) 3 ml INHALATION Q6H.RT [facility] Last Admin: 02/06/19 13:03 Dose: 3 ml Documented by: Bisacodyl (Dulcolax) 10 mg RECTAL DAILY PRN PRN PRN Reason: Constipation Carvedilol (Coreg) 12.5 mg PO BID [facility] Last Admin: 02/06/19 09:21 Dose: 12.5 mg Documented by: Docusate Sodium (Colace) 200 mg PO BID PRN PRN PRN Reason: Constipation Last Admin: 02/06/19 16:54 Dose: 200 mg Documented by: Enoxaparin Sodium (Lovenox) 40 mg SC DAILY [facility] Last Admin: 02/06/19 09:22 Dose: 40 mg Documented by: Guaifenesin (Mucinex) 1,200 mg PO BID [facility] Last Admin: 02/06/19 09:21 Dose: 1,200 mg Documented by: Levofloxacin (Levaquin Iv) 750 mg in 150 mls @ 100 mls/hr IV Q48 [facility] Last Admin: 02/06/19 09:21 Dose: 100 mls/hr Documented by: Vancomycin IV Pharmacy to Dose (1 ea/ Sodium Chloride) 500 mls @ 250 mls/hr IV X1 PRN; Protocol PRN Reason: Rx to Dose Vancomycin HCl () 500 mg in 100 mls @ 100 mls/hr IV Q12H [facility] Last Admin: 02/06/19 11:37 Dose: 100 mls/hr Documented by: Pantoprazole Sodium 40 mg/ (Sodium Chloride) 110 mls @ 330 mls/hr IV Q12 [facility] Labetalol HCl (Trandate) 10 mg IV Q4H PRN PRN PRN Reason: SBP > 160 Last Admin: 02/05/19 05:39 Dose: 10 mg Documented by: Latanoprost (Xalatan Opthalmic) 1 drop RIGHT EYE QHS [facility] Last Admin: 02/05/19 21:57 Dose: 1 drop Documented by: Lorazepam (Ativan) 1 mg PO TID PRN PRN Reason: ANXIETY Last Admin: 02/06/19 11:30 Dose: 1 mg Documented by: Melatonin (Melatonin) 5 mg PO QHS [facility] Last Admin: 02/05/19 21:56 Dose: 5 mg Documented by: Methimazole (Tapazole) 5 mg PO DAILY [facility] Last Admin: 02/06/19 09:21 Dose: 5 mg Documented by: Mirtazapine (Remeron) 30 mg PO QHS [facility] Last Admin: 02/05/19 21:57 Dose: 30 mg Documented by: Morphine Sulfate () 2 mg IV Q3H PRN PRN PRN Reason: Severe Pain (pain scale 6-10) Last Admin: 02/06/19 12:56 Dose: 2 mg Documented by: Nutritional Formula (Lactose Free) (Ensure Enlive) 120 ml PO 4X/DAY [facility] Last Admin: 02/06/19 16:55 Dose: Not Given Documented by: Ondansetron HCl (Zofran) 4 mg IV Q6H PRN PRN PRN Reason: NAUSEA/VOMITING Last Admin: 02/06/19 10:31 Dose: 4 mg Documented by: Oxycodone HCl (Oxyir) 5 mg PO Q4H PRN PRN PRN Reason: Moderate Pain (pain scale 4-5) Last Admin: 02/06/19 16:59 Dose: 5 mg Documented by: Polyethylene Glycol (Miralax) 17 gm PO DAILY [facility] Last Admin: 02/06/19 09:21 Dose: 17 gm Documented by: Prednisone () 40 mg PO DAILY@0800 [facility] Last Admin: 02/06/19 12:56 Dose: 40 mg Documented by: Sodium Chloride () 5 - 15 ml IV UD PRN PRN Reason: SALINE FLUSH Last Admin: 02/06/19 10:31 Dose: 10 ml Documented by: Medical Necessity - Tobacco Use Smoking Status: Former smoker Tobacco Use: Cigarettes Assessment/Plan All Active Problems collapse of left upper lobe (Acute) Possible pneumonia (Acute) Chronic heart failure (Acute) 73-year-old female with past medical history of COPD, chronic respiratory failure on 2 to 4 L of oxygen who comes in with complaints of progressive worsening shortness of breath as well as back pain. Patient was found to have a left upper lobe collapse and was admitted for further management. Pulmonology has been consulted. 1. Acute on chronic hypoxic respiratory failure secondary to left upper lobe collapse/acute COPD exacerbation/pneumonia, improved And is back on her home 2 L of oxygen, on Levaquin, IV steroids, incentive spirometer, Acapella 2. Acute severe COPD exacerbation, improved, on breathing treatment, IV steroids, IV antibiotics 3. Chronic CHF, unknown EF, no signs of acute exacerbation 4. Severe protein calorie malnutrition secondary to advanced COPD, refractory furnace designer consulted. 5. DVT PPx- Lovenox SC 6. Disposition: PT and OT to reevaluate for possible discharge to intermediate facility Code Visit Inpatient E&M: 50588 Subs Hosp L2
--- NOTE | 2019-02-06 17:25 | CASEMGMT ---
Social Work Note Physician updated this worker that pt is anxious to go home and pt's daughter Marleni suggested pt go to SNF at discharge. SW reviewed PT notes, pt walked 40 ft supervision with no equipment used will likely not get approved for SNF. RN called OT to evaluate pt. SW to follow up with pt tomorrow to confirm discharge plans. Lidia Pang APARTMENT RENTAL AGENT, VENDING MACHINE ASSEMBLER
--- NOTE | 2019-02-06 20:26 | CPS ---
Pt refused chest vest d/t nausea
[2019-02-06] MEDS: Latanoprost 0.005% 1 Bottle 1 DRP RIGHT EYE (21:52)
[2019-02-06] MEDS: Mirtazapine 30 MG Tablet PO (21:54)
[2019-02-06] MEDS: MELATONIN 10 MG TABLET 5 MG PO (21:55)
[2019-02-07] VITALS (9 sets, daily range): BP systolic 149–168; BP diastolic 71–78; PULSE 79–84; RESP 18–22; TEMP 36.6–36.8; O2SAT 85–98
[2019-02-07] MEDS: LORazepam 1 MG Tablet PO ×2 (03:39→11:55)
[2019-02-07] MEDS: Ipratropium/Albuterol Sulfate 3 ML AMPUL.NEB INHALATION ×2 (07:33→13:07)
--- NOTE | 2019-02-07 08:06 | PCM.PN.PUL ---
Patient Problems: Active and Suspected Problems collapse of left upper lobe (Acute) Possible pneumonia (Acute) Chronic heart failure (Acute) Subjective: Patient did well overnight. No acute issues reported to delay discharge. Patient reports she does have supplemental oxygen at home. Patient continues to have intermittent productive cough, but no chest pain reported. - Physical Exam General: Alert, Oriented x3, Cooperative, No apparent distress, - - Appears older than stated age. Speaking in full sentences. HEENT: Atraumatic, PERRLA, EOMI, Normocephalic, - - No scleral icterus or injection noted. Oral: Moist Mucosa, No Gingival or Mucosal Lesions/ Ulcerations Neck: Supple, No JVD, No Nodes, Trachea Midline Lungs: No rhonchi, No wheeze, No rales, Diminished - Left apex Cardiovascular: Regular rate, Regular Rhythm, Normal S1, Normal S2, No murmurs, No rub noted, No Gallop Abdomen: Bowel Sounds Present, Soft, Non Tender, Non-Distended Extremities: No cyanosis, No edema, Capillary Refill Less than 3 Seconds, Clubbing Skin: - - No significant change compared to previous Musculoskeletal: No Tenderness to Palpation of Joints or Extremities Lymphatic: No Cervical, Supraclavicular, or Inguinal Adenopathy Neurological: Cranial nerves II-XII grossly intact, Neuro grossly intact, Motor Exam 5/5 strength throughout Psych/Mental Status: Alert and oriented to time, place, person, mood and affect Vital Signs Temp Pulse Resp BP Pulse Ox 36.8 C 79 18 157/76 H 97 02/07/19 08:01 02/07/19 08:01 02/07/19 08:01 02/07/19 08:01 02/07/19 08:01 Oxygen Flow Rate (L/min) 2 Oxygen Delivery Method Nasal Cannula Weight: 48.9 kg Body Mass Index (BMI) 20.7 Intake and Output for Last 24 Hours 02/05/19 02/06/19 02/07/19 23:59 23:59 23:59 Intake Total 308 / 758 550 / 962.8 680.8 / 680.8 Output Total 350 / 530 530 / 880 750 / 750 Balance -42 / 228 20 / 82.8 -69.2 / -69.2 Microbiology Past 72 Hours 02/04/19 10:48 Bacteria Detection (PCR) - Final Blood Culture (Wb) - Anticubital Left Blood Culture - Preliminary 02/04/19 12:12 Urine Culture - Final Urine, Clean Catch Mixed Gram Positive Organisms 02/04/19 12:12 Streptococcus pneumoniae Antigen (M - Final Urine, Clean Catch 02/04/19 12:12 Legionella Antigen - Final Urine, Clean Catch Clinical Impression(s) from Imaging Studies KUB X-Ray 02/06/19 13:40 IMPRESSION: Normal x-ray examination of the abdomen and pelvis. Electronically Signed: Delia Sandoval, at 14:24 EDT Tel , Service support , Medical Necessity - Tobacco Use Smoking Status: Former smoker Tobacco Use: Cigarettes Assessment/Plan All Active Problems collapse of left upper lobe (Acute) Possible pneumonia (Acute) Chronic heart failure (Acute) RECOMMENDATIONS: 1. Continue prednisone therapy and wean over 12 to 14 days 2. Continue Levaquin therapy to complete [address] scan in 4 weeks as an outpatient 4. Possible bronchoscopy as an outpatient 5. Walking oximetry prior to discharge IMPRESSIONS: 1. Acute COPD exacerbation secondary to community-acquired pneumonia Patient appears to be responding to therapy appropriately. Patient has responded well to vest therapy for aggressive pulmonary toileting. Blood culture probe shows no pathologic organisms. Patient should complete 7 days of Levaquin. Repeat imaging with CAT scan in 4 weeks to evaluate airway would be appropriate. Cannot exclude the need for bronchoscopy as an outpatient. 2. Unclear congestive heart failure Patient reportedly was told that she had congestive heart failure 3 years ago at [facility] in [place]. Patient does have some trace lower extremity edema, but does not appear to be on congestive heart failure medications as an outpatient. Unclear if this is secondary to history versus noncompliance. Patient reportedly recently had a heart cath. Outpatient echocardiogram can be obtained. Very low clinical suspicion for congestive heart failure as an etiology of this admission, so would not obtain echocardiogram as an inpatient. 3. Severe protein calorie malnutrition/recurrent ER visits/poor historian Complicates care, management, recovery and prognosis. Patient does state that she would be a full code, at least until she was aware if this is malignancy and its prognosis. Defer supplementation to dietitian. Code Visit Inpatient E&M: 54483 Subs Hosp L2
[2019-02-07] MEDS: Ondansetron 4 MG/2 ML Vial IV (08:16)
[2019-02-07] MEDS: oxyCODONE 5 MG Tablet PO ×2 (08:16→15:40)
[2019-02-07] MEDS: predniSONE 20 MG Tablet 40 MG PO (08:17)
[2019-02-07] MEDS: Carvedilol 12.5 MG Tablet PO (08:18)
[2019-02-07] MEDS: guaiFENesin 1,200 MG Tablet 1200 MG PO (08:18)
[2019-02-07] MEDS: METHIMAZOLE 5 MG TABLET PO (08:18)
[2019-02-07] MEDS: Enoxaparin 40 MG/0.4 ML Syringe SC (09:57)
[2019-02-07] MEDS: Polyethylene Glycol 3350 17 GM PACKET PO (10:00)
[2019-02-07 10:34] LABS: Vancomycin, Trough Level 10.8 ug/mL (5.0-15.0)
[2019-02-07 10:38] LABS: Creatinine, Serum 0.55 mg/dL (0.55-1.02); EST Glomerular Filtration Rate 114 mL/min (>60); Est Glom Filt Rate - Afr Amer 138 mL/min (>60); Estimated Creatinine Clearance 33.84 ml/min
[2019-02-07] MEDS: Vancomycin IV 500 MG/100 ML BAG 100 MG IV (10:45)
--- NOTE | 2019-02-07 13:15 | CASEMGMT ---
Social Work Note CARLOS spoke with PT/OT who states pt is able to return home. CARLOS reviewed PT/OT notes, pt walked 140ft supervision, no equipment used, with PT and walked 120ft supervision, no equipment used with OT. CARLOS met with pt, introduced self and role at [facility]. Pt is alert and orientated x4. Pt states that she wishes to discharge home and states that she feels safe returning home. Pt confirms she has HHC at home and emergency response button. Pt denied additional needs or concerns at this time. CARLOS placed a call to pt's daughter Anai and updated her that pt wishes to discharge home and PT/OT agree that pt is safe to return home. CARLOS updated Anai that pt is being discharged today. Anai states she will be at [facility] later today to transport pt. Plan: Home with HHC Lidia Pang MSW, MEDICAL ASSISTING INSTRUCTOR
--- NOTE | 2019-02-07 13:50 | CASEMGMT ---
MELVIN ZULETA received update that patient is discharging home today. MELVIN ZULETA called and faxed discharge instructions to [facility]. MELVIN ZULETA updated patient and patient denied further needs or concerns at this time.
--- NOTE | 2019-02-08 14:30 | CASEMGMT ---
MELVIN ZULETA DC PHONE CALL DC DATE: 02/07/19 DC Disposition: Home LACE/STRATA: 06/17 Intro role of CM to patient via phone. Pt states she is still not feeling well and has started having diarrhea. Home health nurse is coming to see patient tomorrow morning. MELVIN ZULETA reviewed with pt to call PCP if symptoms worsen, but if pt symptoms are stable, to discuss with home health nurse tomorrow. Reviewed medications and pt has prescriptions. Daughter is available to assist patient. Lety TAVARES RN ACM
== END 2019-02-07 17:27 | disposition home health service (06) | DRG 205 ==
LOC: ED 11:58 → MS3 12:55
PROVIDERS: Family Medicine; Admitting Provider Internal Medicine; Emergency Provider Emergency Medicine; Family Provider Family Medicine; PCP Family Medicine; Referring Provider Internal Medicine; Visit Provider Internal Medicine
DX: J98.19 Other pulmonary collapse (principal); J18.9 Pneumonia, unspecified organism; J96.21 Acute and chronic respiratory failure with hypoxia; E43 Unspecified severe protein-calorie malnutrition; R64 Cachexia; J44.1 Chronic obstructive pulmonary disease with (acute) exacerbation; J44.0 Chronic obstructive pulmonary disease with (acute) lower respiratory infection; Z87.891 Personal history of nicotine dependence; Z99.81 Dependence on supplemental oxygen; I50.9 Heart failure, unspecified; Z68.20 Body mass index [BMI] 20.0-20.9, adult; Z60.2 Problems related to living alone
CPT/HCPCS: 36415; 71045; 71275; 74018; 80048; 80076; 80202; 81001; 81002; 82565; 83880; 84439; 84443; 84484; 85025; 87040; 87086; 87088; 87149; 87449; 93005; 94640; 94667; 94668; 97161; 97166; 97530; 97802; 99285; J7030; J7040; J7050; Q9967; A4216; J2405

== ENCOUNTER 2019-02-09 11:47 | Emergency (ER) | payer MEDICARE, SELFPAY ==
[2019-02-04 13:35] VITALS: BMI 20.7
[2019-02-09 11:52] VITALS: BP 202/84; PULSE 79; RESP 16; TEMP 36.7; O2SAT 85; BMI 22.6
--- NOTE | 2019-02-09 11:52 | EKG12_ITS ---
Test Reason : SOB Blood Pressure : / mmHG Vent. Rate : 079 BPM Atrial Rate : 079 BPM P-R Int : 128 ms QRS Dur : 084 ms QT Int : 366 ms P-R-T Axes : 053 078 070 degrees QTc Int : 419 ms Normal sinus rhythm Poor R-wave Progression Confirmed by ADRIANA RAINEY, TAWNYA ([id number]), online editor TOMMIE POSADAS ([id number]) on 02/12/2019 1:54:42 PM Referred By: CHARLES Confirmed By:TAWNYA WRIGHT MD
[2019-02-09 11:56] VITALS: BP 199/83; O2SAT 94
[2019-02-09] MEDS: Albuterol 2.5 MG/3 ML VIAL.NEB. INHALATION ×3 (12:10)
[2019-02-09] MEDS: Ipratropium/Albuterol Sulfate 3 ML AMPUL.NEB INHALATION (12:12)
[2019-02-09 12:13] VITALS: PULSE 94; RESP 18
[2019-02-09 12:14] LABS: Absolute Lymphocyte Count 1.25 X10^3/ul (0.83-4.51); Absolute Neutrophil Count 4.4 X10^3/uL (2.0-7.7); Eosinophil# 0.03 X10^3/uL; Eosinophils% 0.5 % (0-5); Hemoglobin 11.7 g/dl (12.0-15.0); Lymphocyte # 1.25 X10^3/ul (4.0); Lymphocyte % 20.2 % (19-41); Mean Corp Hgb Conc 31.6 g/gl (32-36); Mean Corpuscular Hgb 29.3 pg (27.0-32.0); Mean Corpuscular Volume 92.7 fL (81-99); Mean Platelet Vol. 8.4 fl (6.2-12.0); Monocyte# 0.52 X10^3/uL; Monocyte% 8.4 % (0-10); Neutrophil # 4.37 X10^3/uL (2.7-7.7); Neutrophil % 70.6 % (47-70); POSITIVE COUNT NO; POSITIVE DIFFERENTIAL NO; POSITIVE MORPHOLOGY NO; Platelet Count 255 K/mm3 (150-450); RBC Distribution Width CV 12.5 % (11.6-14.6); RBC Distribution Width SD 42.6 fl (35.1-43.9); Red Blood Count 3.99 M/mm3 (4.2-5.4); White Blood Count 6.2 K/mm3 (4.4-11.0)
--- NOTE | 2019-02-09 12:14 | ED.VISSUMM ---
- ER Visit Summary Date of Service: 02/09/19 Chief Complaint: Shortness of breath, near syncope History of Present Illness: The patient is a 78 F with history of COPD who is on 2 L of oxygen presents to the emergency department with increasing shortness of breath, nausea, near syncope. Patient was recently hospitalized for a COPD exacerbation. She did have a partial collapse of her left upper lobe. She was treated with bronchodilators, steroids, antibiotics. She was discharged home on her normal 2 L of oxygen. The patient states since being home, she is not feeling any better. She is been having continued exertional dyspnea, lightheadedness, cough, and just not feeling herself. She states that if she walks any short distance, she gets lightheaded and feels like she is going to pass out. She is normally on 2 L of oxygen. She states that her oxygen saturations have been in the low 80s at home. Physical Examination: Vital signs reviewed General: Well-nourished, well-developed Head: Normocephalic, atraumatic Eyes: Pupils equal and reactive, extraocular muscles intact Neck, supple, no lymphadenopathy Heart: Regular rate and rhythm Respiratory: No distress, clear bilaterally Abdomen: Soft, nontender, nondistended, no peritoneal signs Back: Nontender Extremities: Nontender, no edema, no cords Skin: Normal color no rash Neuro: Alert and oriented, no focal or lateralizing deficits Test Results: [] Emergency Department Course and Treatment: The patient presents with dyspnea and bronchospasm. She did have rather significant hospitalization and work-up. I did repeat her chest x-ray which was unchanged. I obtained a blood gas. The patient does have CO2 retention, but this does appear to be her baseline. She is not acidotic. Screening labs are unremarkable. EKG was unchanged. The patient did have a CTA of her chest 5 days ago with no evidence of pulmonary embolus. It does seem that most of her symptoms happen when she exerts herself. She does become hypoxic with exertion. I discussed the case with Dr. Hui. He states that he had told the patient when she is up and moving, that she is going to need to increase her oxygen to 3 or 4 L. When I reviewed this with the patient she states that she had forgotten about this. She does have an abnormality that is concerning for malignancy, but she does not want to pursue any work-up as an inpatient. She is at her baseline. I did have social work see her to establish home care for her. I do not see clear indication for rehospitalization she is really had no significant change in symptoms. The patient will be discharged home. Treatment Plan: [] Disposition: Discharge Impression: 1. Acute on chronic dyspnea This note was generated with [employer] dictation software. It may contain incorrect words, spelling, and punctuation that were not noted in review of the chart prior to signing ED Disposition - Plan for ED Patient: Instructions: Copd Flare Referrals: Ari Guerrero MD [Primary Care Provider] -
[2019-02-09 12:39] LABS: AST(SGOT) 15 U/L (15-37); Alanine Aminotransfer ALT/SGPT 15 U/L (13-56); Albumin, Serum 3.2 g/dL (3.2-5.0); Alkaline Phosphatase 62 U/L (45-117); Anion Gap 0 (5-15); BUN 16 mg/dL (7-18); BUN/Creat Ratio 21.7 RATIO (10-20); Chloride 99 mmol/L (98-107); Creatinine, Serum 0.74 mg/dL (0.55-1.02); EST Glomerular Filtration Rate 81 mL/min (>60); Est Glom Filt Rate - Afr Amer 98 mL/min (>60); Estimated Creatinine Clearance 33.84 ml/min; Globulin 3.2 g/dL (2.2-4.2); Glucose 91 mg/dL (74-106); Potassium 3.8 mmol/L (3.5-5.1); Protein, Total 6.4 g/dL (6.4-8.2); Sodium Level 136 mmol/L (136-145)
[2019-02-09 12:41] LABS: Allen Test POS; Base Excess 13 mmol/L (-2 to +2); Blood Gas Specimen Type ART; O2 Delivery Device Nasal Can; PO2 149 mmHG (75-100); SITE L Radial; SO2 99 % (95-99); Time Given 1222; Total Carbon Dioxide 41 mmol/L; pH 7.32 (7.35-7.45)
--- NOTE | 2019-02-09 12:45 | RAD_ITS ---
STUDY: X-RAY CHEST REASON FOR EXAM: Female, 78 years old. Weakness and nausea. TECHNIQUE: PA and lateral views of the chest. COMPARISON: 04 February 2018 CTA chest FINDINGS: Left lung low volume with noted left upper lobe atelectasis and collapse. Moderate layering pleural effusion is present. Right lung diffuse COPD centrilobular changes are noted. There is no demonstrated pleural abnormality. Normal size heart. Normal mediastinum and karina. Normal visualized pulmonary arteries. There is atherosclerotic calcification of the aortic arch with tortuosity. Normal visualized thoracic spine. Normal visualized ribs, clavicles, and shoulders. There is no demonstrated abnormality of the visualized soft tissue structures of the upper abdomen. RAD/Chest PA and Lateral IMPRESSION: Upper lobe collapse and moderate layering left effusion. COPD changes are noted throughout with no evidence of new focal airspace disease compared to previous exam. Electronically Signed: Adis Antony DO at 13:06 EDT , Service support ,
[2019-02-09 12:46] LABS: Lactic Acid 1.1 mmol/L (0.4-2.0)
--- NOTE | 2019-02-09 12:46 | CPS ---
Critical CO2 results of 76 read and given to .
[2019-02-09 13:04] VITALS: BP 202/78; PULSE 82; RESP 17; TEMP 36.8; O2SAT 98
[2019-02-09 13:05] LABS: Bacteria 0 SEEN /hpf (None Seen); Mucous, Urine 0 SEEN /hpf (<or=2+); Red Blood Cells-Urine 0 SEEN /hpf (0-5); White Blood Cells 0 SEEN /hpf (0-5)
--- NOTE | 2019-02-09 13:07 | ED.RN ---
PT UP TO BEDSIDE COMMODE WHILE WEARING 2L O2. NOTABLE DYSPNEA AFTER BACK TO BED, SPO2 81% ON 2L O2. SPO2 UP TO 97% ON 3L AFTER SEVERAL MINUTES. MD AWARE.
[2019-02-09 13:09] LABS: Color, Urine Yellow (Yellow); Glucose, Dipstick Normal (Normal); Ketone-Dipstick Negative (Negative); Leukocyte Esterase-Dipstick Negative /ul (Negative); Nitrite-Dipstick Negative (Negative); Occult Blood-Urine Negative /ul (Negative); Protein-Dipstick Negative (Negative); Specific Gravity, Urine 1.005 (1.002-1.030); Urine Bilirubin Dipstick Negative (Negative); Urine Clarity Sl. Cloudy (Clear); Urine Urobilinogen Normal (Normal)
[2019-02-09 13:17] LABS: Squamous Epithelial Cells - UA 0-5 SEEN /hpf (5-10)
--- NOTE | 2019-02-09 13:25 | CM.ED ---
Social Work Referral: Recourses vs. Placement Informant: Dr. Roach Chief complaint: Patient reporting to have difficulty with breathing at home and to have pain in stomach. Living Arrangements: Patient lives alone in a 2-story home with a 1st floor set up and no steps to enter the home. Supports: Patient daughterAnai is main support. Patient daughter does stop by and see patient 2-3 times a week per patient. Community Resources: Patient reporting that [facility] was to begin home health services as patient was just in the hospital 5 days ago. Patient agreeable to this social insurance adviser contact [facility] to see when first home health visit will be. Telephone call to [facility], intake reporting to have incorrect contact number, this social insurance adviser updating contact number. DME: Patient reporting to have home oxygen, nebulizers and a walker within the home. Patient does have a medical alert system. ADL's: Patient reporting to be able to manage all ADL's and to not use the walker at home. Patient reporting that patient daughter does drive for patient, as patient no longer drives. Mental Health: Patient reporting to become anxious when unable to breath. Patient stating that patient became anxious about being short of breath today and this is why patient came to the hospital. Patient denies any history of counseling. Patient denies suicidal thoughts or attempts. Comments: This social insurance adviser exploring options with patient for further community support. Patient open to a Palliative care referral. Patient declining to have aides set up within the home, but is open to this social insurance adviser providing patient with list of private duty aides that patient can call to set up within the home. Patient was open to this social insurance adviser speaking with patient daughter. Patient daughter plans to provide transportation home for patient and is aware of civil engineer's aide list for patient and palliative care referral. Support provided for all parties. Referral: Referral faxed to Palliative Care. Brooke SALAZAR, AMANDA
[2019-02-09] MEDS: LORazepam 1 MG Tablet PO (14:24)
[2019-02-09 14:26] VITALS: BP 171/68; PULSE 71; RESP 16; O2SAT 96
== END 2019-02-09 15:34 | disposition home or self-care (01) ==
PROVIDERS: Emergency Provider Emergency Medicine; Family Provider Family Medicine; PCP Family Medicine
DX: R06.00 Dyspnea, unspecified (principal); J44.9 Chronic obstructive pulmonary disease, unspecified; Z99.81 Dependence on supplemental oxygen; I11.0 Hypertensive heart disease with heart failure; I50.9 Heart failure, unspecified; Z87.891 Personal history of nicotine dependence; Z79.51 Long term (current) use of inhaled steroids; Z79.899 Other long term (current) drug therapy
CPT/HCPCS: 36600; 71046; 80053; 81001; 82803; 83605; 83880; 84484; 85025; 93005; 94640; 96360; 99285; J7040; A4216

== ENCOUNTER 2019-03-01 17:12 | Emergency (ER) | payer MEDICARE, SELFPAY ==
[2019-02-27 14:23] VITALS: BMI 22.6
[2019-03-01 17:13] VITALS: BP 110/55; PULSE 100; RESP 18; TEMP 36.6; O2SAT 100; BMI 20.1
--- NOTE | 2019-03-01 17:30 | RAD_ITS ---
STUDY: X-RAY CHEST REASON FOR EXAM: Female, 78 years old. Chest pain/pressure TECHNIQUE: PA and lateral views of the chest. COMPARISON: 02/09/2019 FINDINGS: There is hyperinflation of the lungs consistent with chronic obstructive lung disease (COPD). There is no demonstrated pleural abnormality. There is architectural distortion in the left mid thorax suggesting previous surgery Normal size heart. Normal mediastinum and karina. Normal visualized pulmonary arteries. There is atherosclerotic calcification of the aortic arch with tortuosity. There are diffuse degenerative changes of the visualized thoracic spine. Normal visualized ribs, clavicles, and shoulders. There is no demonstrated abnormality of the visualized soft tissue structures of the upper abdomen. RAD/Chest PA and Lateral IMPRESSION: Hyperexpanded lungs with architectural distortion in the left hemithorax, likely from previous surgery. No superimposed acute pulmonary process Electronically Signed: Phillip Vasquez MD at 17:47 EDT , Service support ,
--- NOTE | 2019-03-01 19:14 | ED.VIS.GEN ---
History of Present Illness Chief Complaint: Shortness of Breath Informant: Patient, Family Narrative: Patient has significant COPD, oxygen dependent at home, was admitted for pneumonia around 2 or 3 weeks ago and has home health visiting since then. She has finished antibiotics and prednisone, and states now she has been at her baseline level of dyspnea, no worse today. Home health listen to her lungs today, her no lung sounds on the right and was concerned enough to call the records supervisor and sent her emergently to the hospital for evaluation and a chest x-ray. The patient states she has no chest discomfort even with taking deep inspiration, has no more shortness of breath than usual, and no upper back discomfort. She feels like she is at baseline and she is doing okay, her nebulizer treatments are helping her dyspnea. - Past Medical History (1) Chronic heart failure Status: Chronic (2) COPD (chronic obstructive pulmonary disease) Status: Chronic Past Medical History - Allergies and Home Meds Allergies/Adverse Reactions: Allergies cephalexin monohydrate [From Keflex] Allergy (Verified 03/01/19 17:15) Hives ciprofloxacin [From Cipro] Allergy (Verified 03/01/19 17:16) Hives sulfamethoxazole [From Bactrim] Allergy (Verified 03/01/19 17:16) Rash trimethoprim [From Bactrim] Allergy (Verified 03/01/19 17:16) Rash codeine Adverse Reaction (Verified 03/01/19 17:15) Other Primary Care Physician: Ari Guerrero MD [Primary Care Provider] - Lives: Alone Smoking Status: Former smoker - Family History Paternal Family History: Family History (Last Reviewed 02/27/19 @ 14:30 by Nuha Day NP-C) Father Emphysema lung Mother Heart disease Sister Heart disease Family History: Reports: No pertinent history Review of Systems General: Denies: Chills, Fever Respiratory: Reports: Dyspnea, Cough, Dyspnea on exertion. Denies: Sputum, Orthopnea Gastrointestinal: Reports: Constipation Musculoskeletal: Reports: Back pain - Low back pain, chronic, unchanged. Denies: Swelling, Extremity Pain Physical Exam Vital Signs/Narrative: Vital Signs Temp Pulse Resp BP Pulse Ox 03/01/19 17:13 97.8 F 100 18 110/55 L 100 Inital Vital Signs reviewed: Yes General: Well nourished, Well developed, No Acute Distress - Conversational, pleasant, no respiratory distress Head: Normocephalic, Atraumatic Neck: Supple, Nontender Cardiovascular: Regular rate, Regular rhythm Respiratory: No distress, CTA bilaterally, Chest nontender, Diminished - Throughout, but equal bilaterally in all correa Extremities: Nontender, No edema. Negative for: Calf Tenderness Skin: No rash, No Trauma Neurological: Alert, Oriented x3, Cranial nerves II-XII grossly intact, Normal Strength, Normal Sensation, Normal Gait Psychological: Normal affect, Normal Mood Diagnostic/Tx/Re-eval Clinical Impression(s) from Imaging Studies Chest X-Ray 03/01/19 17:30 IMPRESSION: Hyperexpanded lungs with architectural distortion in the left hemithorax, likely from previous surgery. No superimposed acute pulmonary process Electronically Signed: Phillip Vasquez MD at 17:47 EDT , Service support , - Medical Decision Making With x-ray showing no acute abnormalities and consistent with her chronic COPD, she is reassured and I feel she is safe to be discharged home especially since she has no symptoms of a sudden pneumothorax. ED Disposition - Plan for ED Patient: Disposition: Home or Assisted Living Diagnosis: Encounter for medical screening examination, COPD (chronic obstructive pulmonary disease) Instructions: Treatments for COPD Referrals: Ari Guerrero MD [Primary Care Provider] - As Needed
[2019-03-01 19:22] VITALS: RESP 18
== END 2019-03-01 19:30 | disposition home or self-care (01) ==
PROVIDERS: Emergency Provider Emergency Medicine; Family Provider Family Medicine; PCP Family Medicine
DX: J44.9 Chronic obstructive pulmonary disease, unspecified (principal); Z99.81 Dependence on supplemental oxygen; Z87.891 Personal history of nicotine dependence
CPT/HCPCS: 71046; 99282